=== PATIENT | female | born 1965 | race Caucasian/White ===

== ENCOUNTER 2021-09-14 12:27 | Inpatient (IN) ==
[2021-09-14 13:12] LABS: Basophils # (auto) 0.01 K/uL (0-0.2); Basophils % (auto) 0.1 %; Eosinophils # (auto) 0.01 K/uL (0-0.5); Eosinophils % (auto) 0.1 %; Hematocrit (blood only) 39.4 % (37-47); Hemoglobin 13.7 g/dL (12.0-16.0); Immature Granulocytes # (auto) 0.04 K/uL (0.00-0.02); Immature Granulocytes % (auto) 0.3 %; Lymphocytes # (auto) 1.38 K/uL (1.2-3.4); Lymphocytes % (auto) 8.7 %; Mean Corpuscular Hemoglobin 28.8 pg (25-34); Mean Corpuscular Hgb Conc 34.8 g/dL (32-36); Mean Corpuscular Volume 82.8 fL (80-100); Mean Platelet Volume 10.4 fL (7.4-10.4); Monocytes # (auto) 0.53 K/uL (0.11-0.59); Monocytes % (auto) 3.3 %; Neutrophils # (auto) 13.94 K/uL (1.4-6.5); Neutrophils % (auto) 87.5 %; Platelet Count 248 K/uL (130-400); RDW Standard Deviation 36.4 fL (36.4-46.3); Red Blood Count 4.76 M/uL (4.2-5.4); White Blood Count 15.91 K/uL (4.8-10.8)
[2021-09-14 13:30] LABS: Alanine Aminotransferase 19 (12-78); Albumin Level 3.8 gm/dl (3.4-5.0); Aspartate Aminotransferase 10 U/L (15-37); BUN Creatinine Ratio 25.1 (10-20); Blood Urea Nitrogen 17 mg/dl (7-18); Carbon Dioxide 27 mmol/L (21-32); Chloride 100 mmol/L (98-107); Creatinine Clr Calc Pharmacy 94.4 ml/min; Est GFR (African American) 116.3 ml/min; Est GFR (Non-African American) 100.4 ml/min; Glucose 87 mg/dl (70-99); Potassium 4.2 mmol/L (3.5-5.1); Sodium 134 mmol/L (136-145)
[2021-09-14 13:40] LABS: Albumin Globulin Ratio 1.1 (0.9-2); Alkaline Phosphatase 66 U/L (45-117); Bilirubin,Total 0.9 mg/dl (0.2-1); Globulin 3.6 gm/dl (2.5-4.0); Total Protein 7.4 gm/dl (6.4-8.2); Troponin I < 0.015 ng/ml (0-0.045)
--- NOTE | 2021-09-14 15:21 | Electrocardiogram Report ---
Test Reason : Blood Pressure : / mmHG Vent. Rate : 082 BPM Atrial Rate : 082 BPM P-R Int : 154 ms QRS Dur : 070 ms QT Int : 382 ms P-R-T Axes : 076 042 017 degrees QTc Int : 446 ms Normal sinus rhythm Septal infarct (cited on or before 10-SEP-2021) Abnormal ECG When compared with ECG of 10-SEP-2021 15:17, No significant change was found Confirmed by Diego Rodríguez ([id number]) on 09/14/2021 3:20:50 PM Referred By: Confirmed By:Diego Rodríguez
[2021-09-14] MEDS ORDERED: SODIUM CHLORIDE 0.9% 1000ML 2,000 ML IV ONE (16:17)
[2021-09-14] MEDS ORDERED: MoRPHine SULFATE 4 MG/ML 1 ML CARP\\VIAL IV STA (16:17)
[2021-09-14] MEDS ORDERED: ACETAMINOPHEN 1000 MG/100 ML IV IV STA (16:17)
[2021-09-14] MEDS ORDERED: ONDANSETRON INJ 2 MG/ML 2 ML VIAL IV STA (16:17)
[2021-09-14] MEDS ORDERED: cefTRIAXone SODIUM 2,000 MG/70 ML BAG IV STA (16:17)
--- NOTE | 2021-09-14 16:28 | Emergency Department Note ---
Impression & Plan Meningitis, Headache, Leukocytosis, Acute dehydration ED Provider Note NAME: PIPPA SONI AGE: 55 SEX: F : 1965 ARRIVES VIA: Walk-In INFORMANT: [Patient] ED PROVIDER(S): [José Miguel Quinn MD] � CHIEF COMPLAINT: Weakness, illness HISTORY OF PRESENT ILLNESS: The patient is a 55-year-old female who has been sick for about a week. She initially thought she was having a reaction from her Covid booster as her symptoms started the addiction therapist the day after she received a booster. She felt better a short bit later but then things kicked back in again. She c omplains of a headache, chills, body aches. She has some upper abdominal pain. She has had vomiting and nausea, no diarrhea, no urinary complaints. No sore throat or stuffy nose or cough. The patient did fall 4 days ago and strike her head. She was seen in the ED after this fall and a CT of the head was unremarkable. She presents back today at the advice of her doctor's office as her symptoms are ongoing and a bit worse. She describes her headache as diffuse and an 8/10. She has had shivers and chills while in the waiting room. She did try some Motrin and Tylenol earlier today. The patient is vaccinated for COVID-19 and influenza. REVIEW OF SYSTEMS: See HPI for pertinent positives and negatives. A total of ten systems were reviewed and were otherwise negative. PMHx/PSHx: See Below SOCIAL HISTORY: See Below. PHYSICAL EXAM: GENERAL: Patient is in no acute distress. Shivering. HEENT: No acute trauma, normocephalic atraumatic, mucous membranes moist, no nasal congestion, no scleral icterus. NECK: No stridor, no adenopathy, no meningismus, trachea is midline. LUNGS: Clear to auscultation bilaterally, no wheeze, no rhonchi, breath sounds equal. HEART: Without murmurs gallops or rubs, regular rate and rhythm. ABDOMEN: Soft, mildly tender in the epigastrium, bowel sounds positive, no hernias, no peritonitis. EXTREMITIES: No cyanosis or edema, full range of motion of all the joints without pain or difficulty, no signs for acute trauma. NEUROLOGIC: Oriented x 3, no acute motor or sensory deficits, no focal weakness. SKIN: No rash, no jaundice, no diaphoresis. DIFFERENTIAL DIAGNOSIS: Sepsis, UTI, pneumonia, metabolic abnormality, electrolyte abnormalities, COVID- 19, influenza, vaccine reaction, cardiac sources, cellulitis, bacteremia, meningitis, tickborne illness, intracerebral event, toxicologic etiology, neurologic event, as well as other pathologies. EMERGENCY DEPARTMENT COURSE/PROCEDURES: ECG: Indication was weakness and illness. The ECG shows a normal sinus rhythm with a rate of 82. There is an old septal infarct. There is no ST elevation, no PVCs. The QTc is 446. Continuous Cardiac Monitoring: An order was placed for continuous cardiac monitoring. The monitor shows a rate of 87 with normal sinus rhythm. Critical Care Note: I have personally spent 52 minutes of critical care time in the direct management of this patient. This includes bedside care, interpretation of diagnostic studies, and testing, discussion with consultants, patient, and family members, and other required patient management activities. This 52 minutes is in excess of all separately billable procedures. Lumbar puncture: This procedure was performed by me. Risks and benefits of the procedure were discussed. Patient was placed seated on the stretcher. Lumbar landmarks were identified. Betadine was used for prep. Sterile drapes were applied. Using sterile technique, lidocaine was used to anesthetize the lumbar area. Using sterile technique, I was able to access the spinal canal with a 22- gauge spinal needle. There were no complications. Fluid was collected for analysis and sent to the lab. Patient tolerated the procedure well. MEDICAL DECISION MAKING: There is a moderate leukocytosis, this is consistent with infection. There is a normal hemoglobin and platelet count. Sodium was a bit low but not in need of emergent correction. No kidney failure. Lactic acid level was not elevated making severe sepsis less likely. No concerning liver enzyme elevation. The patient appeared to be in a euthyroid state. ECG shows a sinus rhythm, no acute ischemia. Cardiac enzyme testing x1 is not consistent with acute cardiac injury. Urinalysis shows dehydration, no obvious infection. Covid testing returned negative. Influenza and RSV testing returned negative. Chest film did not show pneumonia or CHF. Brain CT showed no acute bleed or mass-effect. CSF fluid analysis does show evidence for meningitis. Bio fire testing of the spinal fluid was unremarkable. The patient presents with flulike symptoms and a headache. She was found to have meningitis by work-up. The patient received IV saline, 2 L. She was given 1 L of lactated Ringer's. She received IV Zofran, IV morphine, IV Decadron, IV ceftriaxone, IV Tylenol and IV acyclovir. The patient is in need of a hospital stay. I suspect this meningitis will engine turner to be viral but certainly, further work-up and care is warranted. The spinal fluid culture is still pending. I spoke with the patient and immigration case worker. The on-call hospitalist was consulted. Past Med/Surg History Medical History No active medical problems Family History Other Family history non-contributory Social History Smoking Status: Never smoker Feels Safe at Home: Yes Allergies Allergies Allergy/AdvReac Type Severity Reaction Status Date / Time No Known Allergies Allergy Verified 09/14/21 16:15 Home Meds Home Medications Medication Instructions Recorded Confirmed ibuprofen 200 mg tablet (Advil) 400 mg PO Q6H PRN 09/10/21 09/14/21 Previous Rx's Medication Instructions Recorded famotidine 20 mg tablet 20 mg PO BID #20 tab 09/10/21 ondansetron 4 mg disintegrating 4 mg PO Q6H PRN #14 tab 09/10/21 tablet Results & Data (ED) Vital Signs Vital Signs - 24 hr 09/14/21 12:40 09/14/21 18:08 09/14/21 18:30 Temperature 36.4 C L Temperature Source Temporal Artery Scan Pulse Rate 87 82 82 Pulse Rate [Apical] Pulse Rate from SpO2 Sensor 82 81 Pulse Rhythm Regular Pulse Rhythm [Apical] Pulse Strength Normal Pulse Strength [Apical] Respiratory Rate 20 23 23 Respiratory Effort / Characteristics Non-Labored Spontaneous Respiratory Depth Normal Respiratory Pattern Regular Blood Pressure 137/84 111/66 Blood Pressure [Right Arm] Blood Pressure Mean 101 81 Blood Pressure Mean [Right Arm] Blood Pressure Position Sitting Blood Pressure Position [Right Arm] Pulse Oximetry 96 92 94 Oxygen Delivery Method Room Air Oxygen Flow Rate Sepsis Recent Fever Within 48 Hours No Sepsis New/Unexplained Change in Mental Status N/A Sepsis Action Taken by Nursing No Action Required 09/14/21 20:21 Temperature Temperature Source Pulse Rate Pulse Rate [Apical] 78 Pulse Rate from SpO2 Sensor Pulse Rhythm Pulse Rhythm [Apical] Regular Pulse Strength Pulse Strength [Apical] Normal Respiratory Rate 20 Respiratory Effort / Characteristics Non-Labored Spontaneous Respiratory Depth Normal Respiratory Pattern Regular Blood Pressure Blood Pressure [Right Arm] 127/76 Blood Pressure Mean Blood Pressure Mean [Right Arm] 93 Blood Pressure Position Blood Pressure Position [Right Arm] Lying Pulse Oximetry 94 Oxygen Delivery Method Room Air Oxygen Flow Rate 0 Sepsis Recent Fever Within 48 Hours Sepsis New/Unexplained Change in Mental Status Sepsis Action Taken by Correction Medications Current Medication List: was personally reviewed by me Laboratory Data Attestation: I reviewed the patient's lab results. Result diagrams: 09/14/21 12:50 09/14/21 12:50 Lab Results 09/14/21 09/14/21 09/14/21 Range/Units 12:50 12:50 12:50 WBC 15.91 H (4.8-10.8) K/uL RBC 4.76 (4.2-5.4) M/uL Hgb 13.7 (12.0-16.0) g/dL Hct 39.4 (37-47) % MCV 82.8 (80-100) fL MCH 28.8 (25-34) pg MCHC 34.8 (32-36) g/dL RDW Std Deviation 36.4 (36.4-46.3) fL RDW Coeff of Nilo 12.0 (11.5-14.5) % Plt Count 248 (130-400) K/uL MPV 10.4 (7.4-10.4) fL Immature Gran % (Auto) 0.3 % Neut % (Auto) 87.5 % Lymph % (Auto) 8.7 % Converse % (Auto) 3.3 % Eos % (Auto) 0.1 % Baso % (Auto) 0.1 % Neut # (Auto) 13.94 H (1.4-6.5) K/uL Lymph # (Auto) 1.38 (1.2-3.4) K/uL Converse # (Auto) 0.53 (0.11-0.59) K/uL Eos # (Auto) 0.01 (0-0.5) K/uL Baso # (Auto) 0.01 (0-0.2) K/uL Immature Gran # (Auto) 0.04 H (0.00-0.02) K/uL Sodium 134 L (136-145) mmol/L Potassium 4.2 (3.5-5.1) mmol/L Chloride 100 (98-107) mmol/L Carbon Dioxide 27 (21-32) mmol/L Anion Gap 7.0 (3-11) BUN 17 (7-18) mg/dl Creatinine 0.67 (0.6-1.2) mg/dl Est Cr Clr Drug Dosing 94.4 ml/min Est GFR ( Amer) 116.3 ml/min Est GFR (Non-Af Amer) 100.4 ml/min BUN/Creatinine Ratio 25.1 H (10-20) Glucose 87 (70-99) mg/dl Lactate (0.4-2.0) mmol/L Calcium 9.0 (8.5-10.1) mg/dl Total Bilirubin 0.9 (0.2-1) mg/dl AST 10 L (15-37) U/L ALT 19 (12-78) Alkaline Phosphatase 66 (45-117) U/L Troponin I < 0.015 (0-0.045) ng/ml Total Protein 7.4 (6.4-8.2) gm/dl Albumin 3.8 (3.4-5.0) gm/dl Globulin 3.6 (2.5-4.0) gm/dl Albumin/Globulin Ratio 1.1 (0.9-2) TSH 1.750 (0.300-4.500) uIu/ml Urine Color Urine Appearance (Clear) Urine pH (4.5-7.5) Ur Specific [place] (1.000-1.030) Urine Protein (Negative) Urine Glucose (UA) (Negative) Urine Ketones (Negative) Urine Blood (Negative) Urine Nitrite (Negative) Urine Bilirubin (Negative) Urine Urobilinogen (Negative) Ur Leukocyte Esterase (Negative) Urine WBC (Auto) (0-5) /hpf Urine RBC (Auto) (0-4) /hpf U Hyaline Cast (Auto) (0-5) /lpf U Epithel Cells (Auto) (0-5) /lpf Urine Bacteria (Auto) (Negative) Fluid Comment CSF Appearance CSF Color Xanthrochromic CSF WBC (0-5) /uL CSF RBC (0-) /uL CSF Cell Count Tube # CSF Mononuclear WBCs % CSF Polynuclear WBCs % CSF Chemistry Tube # CSF Glucose (40-70) mg/dl CSF Total Protein (15-45) mg/dl CSF C.neoform/gat PCR (NotDetected) CSF CMV DNA (PCR) (NotDetected) CSF Enterovirus (PCR) (NotDetected) CSF E. coli K1 (PCR) (NotDetected) CSF H. influenzae (PCR) (NotDetected) CSF HSV I (PCR) (NotDetected) CSF HSV II (PCR) (NotDetected) CSF HHV 6 (PCR) (NotDetected) CSF L.monocytogenes PCR (NotDetected) CSF N. meningitidis PCR (NotDetected) CSF Parechovirus (PCR) (NotDetected) CSF S. agalactiae (PCR) (NotDetected) CSF S. pneumoniae (PCR) (NotDetected) CSF VZV DNA (PCR) (NotDetected) Anaplasma Smear Babesia Smear Lyme Disease IgG Ab Negative (Negative) Lyme Disease IgM Ab Negative (Negative) SARS-CoV-2 (PCR) (Negative) Influenza Type A (PCR) (Neg) Influenza Type B (PCR) (Neg) RSV (RT-PCR) (Neg) 09/14/21 09/14/21 09/14/21 Range/Units 12:50 17:00 17:15 WBC (4.8-10.8) K/uL RBC (4.2-5.4) M/uL Hgb (12.0-16.0) g/dL Hct (37-47) % MCV (80-100) fL MCH (25-34) pg MCHC (32-36) g/dL RDW Std Deviation (36.4-46.3) fL RDW Coeff of Nilo (11.5-14.5) % Plt Count (130-400) K/uL MPV (7.4-10.4) fL Immature Gran % (Auto) % Neut % (Auto) % Lymph % (Auto) % Converse % (Auto) % Eos % (Auto) % Baso % (Auto) % Neut # (Auto) (1.4-6.5) K/uL Lymph # (Auto) (1.2-3.4) K/uL [place] # (Auto) (0.11-0.59) K/uL Eos # (Auto) (0-0.5) K/uL Baso # (Auto) (0-0.2) K/uL Immature Gran # (Auto) (0.00-0.02) K/uL Sodium (136-145) mmol/L Potassium (3.5-5.1) mmol/L Chloride (98-107) mmol/L Carbon Dioxide (21-32) mmol/L Anion Gap (3-11) BUN (7-18) mg/dl Creatinine (0.6-1.2) mg/dl Est Cr Clr Drug Dosing ml/min Est GFR ( Amer) ml/min Est GFR (Non-Af Amer) ml/min BUN/Creatinine Ratio (10-20) Glucose (70-99) mg/dl Lactate 1.0 (0.4-2.0) mmol/L Calcium (8.5-10.1) mg/dl Total Bilirubin (0.2-1) mg/dl AST (15-37) U/L ALT (12-78) Alkaline Phosphatase (45-117) U/L Troponin I (0-0.045) ng/ml Total Protein (6.4-8.2) gm/dl Albumin (3.4-5.0) gm/dl Globulin (2.5-4.0) gm/dl Albumin/Globulin Ratio (0.9-2) TSH (0.300-4.500) uIu/ml Urine Color Urine Appearance (Clear) Urine pH (4.5-7.5) Ur Specific [place] (1.000-1.030) Urine Protein (Negative) Urine Glucose (UA) (Negative) Urine Ketones (Negative) Urine Blood (Negative) Urine Nitrite (Negative) Urine Bilirubin (Negative) Urine Urobilinogen (Negative) Ur Leukocyte Esterase (Negative) Urine WBC (Auto) (0-5) /hpf Urine RBC (Auto) (0-4) /hpf U Hyaline Cast (Auto) (0-5) /lpf U Epithel Cells (Auto) (0-5) /lpf Urine Bacteria (Auto) (Negative) Fluid Comment CSF Appearance CSF Color Xanthrochromic CSF WBC (0-5) /uL CSF RBC (0-) /uL CSF Cell Count Tube # CSF Mononuclear WBCs % CSF Polynuclear WBCs % CSF Chemistry Tube # CSF Glucose (40-70) mg/dl CSF Total Protein (15-45) mg/dl CSF C.neoform/gat PCR (NotDetected) CSF CMV DNA (PCR) (NotDetected) CSF Enterovirus (PCR) (NotDetected) CSF E. coli K1 (PCR) (NotDetected) CSF H. influenzae (PCR) (NotDetected) CSF HSV I (PCR) (NotDetected) CSF HSV II (PCR) (NotDetected) CSF HHV 6 (PCR) (NotDetected) CSF L.monocytogenes PCR (NotDetected) CSF N. meningitidis PCR (NotDetected) CSF Parechovirus (PCR) (NotDetected) CSF S. agalactiae (PCR) (NotDetected) CSF S. pneumoniae (PCR) (NotDetected) CSF VZV DNA (PCR) (NotDetected) Anaplasma Smear See Comment Babesia Smear See Comment Lyme Disease IgG Ab (Negative) Lyme Disease IgM Ab (Negative) SARS-CoV-2 (PCR) NEGATIVE (Negative) Influenza Type A (PCR) Negative (Neg) Influenza Type B (PCR) Negative (Neg) RSV (RT-PCR) Negative (Neg) 09/14/21 09/14/21 09/14/21 Range/Units 18:53 20:00 20:00 WBC (4.8-10.8) K/uL RBC (4.2-5.4) M/uL Hgb (12.0-16.0) g/dL Hct (37-47) % MCV (80-100) fL MCH (25-34) pg MCHC (32-36) g/dL RDW Std Deviation (36.4-46.3) fL RDW Coeff of Nilo (11.5-14.5) % Plt Count (130-400) K/uL MPV (7.4-10.4) fL Immature Gran % (Auto) % Neut % (Auto) % Lymph % (Auto) % [place] % (Auto) % Eos % (Auto) % Baso % (Auto) % Neut # (Auto) (1.4-6.5) K/uL Lymph # (Auto) (1.2-3.4) K/uL [place] # (Auto) (0.11-0.59) K/uL Eos # (Auto) (0-0.5) K/uL Baso # (Auto) (0-0.2) K/uL Immature Gran # (Auto) (0.00-0.02) K/uL Sodium (136-145) mmol/L Potassium (3.5-5.1) mmol/L Chloride (98-107) mmol/L Carbon Dioxide (21-32) mmol/L Anion Gap (3-11) BUN (7-18) mg/dl Creatinine (0.6-1.2) mg/dl Est Cr Clr Drug Dosing ml/min Est GFR ( Amer) ml/min Est GFR (Non-Af Amer) ml/min BUN/Creatinine Ratio (10-20) Glucose (70-99) mg/dl Lactate (0.4-2.0) mmol/L Calcium (8.5-10.1) mg/dl Total Bilirubin (0.2-1) mg/dl AST (15-37) U/L ALT (12-78) Alkaline Phosphatase (45-117) U/L Troponin I (0-0.045) ng/ml Total Protein (6.4-8.2) gm/dl Albumin (3.4-5.0) gm/dl Globulin (2.5-4.0) gm/dl Albumin/Globulin Ratio (0.9-2) TSH (0.300-4.500) uIu/ml Urine Color Dark Yellow Urine Appearance Clear (Clear) Urine pH 5.5 (4.5-7.5) Ur Specific [place] 1.034 H (1.000-1.030) Urine Protein Trace H (Negative) Urine Glucose (UA) Negative (Negative) Urine Ketones 4+ H (Negative) Urine Blood Trace H (Negative) Urine Nitrite Negative (Negative) Urine Bilirubin Negative (Negative) Urine Urobilinogen Negative (Negative) Ur Leukocyte Esterase Trace H (Negative) Urine WBC (Auto) 10-30 H (0-5) /hpf Urine RBC (Auto) 0-4 (0-4) /hpf U Hyaline Cast (Auto) 1-5 (0-5) /lpf U Epithel Cells (Auto) >30 H (0-5) /lpf Urine Bacteria (Auto) Negative (Negative) Fluid Comment CSF Appearance Clear CSF Color Yellow Xanthrochromic Xanthochromic CSF WBC 88 H* (0-5) /uL CSF RBC 0 (0-) /uL CSF Cell Count Tube # 3 CSF Mononuclear WBCs 68.0 % CSF Polynuclear WBCs 32.0 % CSF Chemistry Tube # 1 CSF Glucose 54 (40-70) mg/dl CSF Total Protein 138.1 H (15-45) mg/dl CSF C.neoform/gat PCR Not Detected (NotDetected) CSF CMV DNA (PCR) Not Detected (NotDetected) CSF Enterovirus (PCR) Not Detected (NotDetected) CSF E. coli K1 (PCR) Not Detected (NotDetected) CSF H. influenzae (PCR) Not Detected (NotDetected) CSF HSV I (PCR) Not Detected (NotDetected) CSF HSV II (PCR) Not Detected (NotDetected) CSF HHV 6 (PCR) Not Detected (NotDetected) CSF L.monocytogenes PCR Not Detected (NotDetected) CSF N. meningitidis PCR Not Detected (NotDetected) CSF Parechovirus (PCR) Not Detected (NotDetected) CSF S. agalactiae (PCR) Not Detected (NotDetected) CSF S. pneumoniae (PCR) Not Detected (NotDetected) CSF VZV DNA (PCR) Not Detected (NotDetected) Anaplasma Smear Babesia Smear Lyme Disease IgG Ab (Negative) Lyme Disease IgM Ab (Negative) SARS-CoV-2 (PCR) (Negative) Influenza Type A (PCR) (Neg) Influenza Type B (PCR) (Neg) RSV (RT-PCR) (Neg) Administered Medications Discontinued Medications Acetaminophen (Acetaminophen 1000 Mg/100 Ml Iv) 1,000 mg IV NOW STA Stop: 09/14/21 16:18 Last Admin: 09/14/21 17:06 Dose: 1,000 mg Documented by: [id number] Dexamethasone Sodium Phosphate (DexamethasonePf 10 Mg/Ml Vial) 10 mg IV NOW ONE Stop: 09/14/21 21:03 Last Admin: 09/14/21 21:45 Dose: 10 mg Documented by: [id number] Sodium Chloride (Nss 1000ml) 2,000 mls @ 999 mls/hr IV .Q2H1M ONE Stop: 09/14/21 18:17 Last Infusion: 09/14/21 19:00 Dose: 0 mls/hr Documented by: [id number] Admin: 09/14/21 17:03 Dose: 999 mls/hr Documented by: [id number] Ceftriaxone Sodium (Rocephin) 2,000 mg in 70 mls @ 140 mls/hr IV NOW STA Stop: 09/14/21 16:46 Last Infusion: 09/14/21 19:00 Dose: 0 mls/hr Documented by: [id number] Admin: 09/14/21 17:03 Dose: 140 mls/hr Documented by: [id number] Lactated Ringer's (Lr) 1,000 mls @ 999 mls/hr IV .Q1H1M STA Stop: 09/14/21 21:17 Last Infusion: 09/14/21 21:43 Dose: 0 mls/hr Documented by: [id number] Admin: 09/14/21 20:25 Dose: 999 mls/hr Documented by: [id number] Acyclovir Sodium 700 mg/ (Dextrose) 264 mls @ 250 mls/hr IV NOW ONE Stop: 09/14/21 23:00 Last Admin: 09/14/21 22:21 Dose: 250 mls/hr Documented by: [id number] Lidocaine HCl (Xylocaine 1%/Sod Bicarb 20 Ml Vial) 20 ml INFIL NOW ONE Stop: 09/14/21 19:31 Last Admin: 09/14/21 20:01 Dose: 20 ml Documented by: [id number] Morphine Sulfate (Morphine Sulfate 4 Mg/Ml 1 Ml Carp\Vial) 4 mg IV NOW STA Stop: 09/14/21 16:18 Last Admin: 09/14/21 16:42 Dose: 4 mg Documented by: [id number] Ondansetron HCl (Ondansetron Inj 2 Mg/Ml 2 Ml Vial) 4 mg IV NOW STA Stop: 09/14/21 16:18 Last Admin: 09/14/21 16:42 Dose: 4 mg Documented by: [id number] Imaging Data Radiologist's Impression: Chest X-Ray 09/14/21 16:19 XR chest 1V portable CLINICAL HISTORY: Flulike symptoms. Difficulty breathing. Previous cough, fever and shortness of breath COMPARISON STUDY: 09/10/2021 TECHNIQUE: 1 view of the chest FINDINGS: Single frontal view of the chest demonstrates the cardiomediastinal silhouette to be within normal limits. The lungs are clear of alveolar opacities. There is no evidence for pleural effusion. There is no evidence for vascular congestion. There is no acute osseous pathology. IMPRESSION: No acute cardiopulmonary disease. ACT 112: Negative or not required by law. Electronically signed by: Steven Escamilla M.D. 09/14/2021 4:[address] 09/14/21 16:19 CT head/brain wo con CLINICAL HISTORY: 55 years-old Female with fall, headache. Acute headache status post fall TECHNIQUE: Multiple axial CT images of the head were obtained without contrast. A dose lowering technique was utilized adhering to the principles of ALARA. CT DOSE: 537.48 mGy.cm COMPARISON: Head CT 09/10/2021 FINDINGS: No acute intracranial hemorrhage, midline shift, intracranial mass, hydr ocephalus, territorial ischemia or abnormal extra-axial collection. Senescent calcifications of the basal ganglia. Minimal white matter hypodensities may reflect chronic microvascular ischemic disease. The study is mildly motion degraded. The calvarium is intact. Small contusion of the left posterior scalp. The paranasal sinuses, mastoid air cells, and middle ear cavities are clear. IMPRESSION: 1. No acute intracranial abnormality or calvarial fracture. 2. Small contusion of the left posterior scalp. ACT 112: Negative or not required by law. The above report was generated using voice recognition software. It may contain grammatical, syntax or spelling errors. Electronically signed by: Herbert Tesfaye M.D. 09/14/2021 6:04 PM Discharge Plan Visit Data Chief Complaint: Weakness Stated Complaint: WEAK,TIRED,NOT EATING,POSS CONCUSSION,JASSO ED Provider: José Miguel Quinn Discharge Problem: Meningitis, Headache, Leukocytosis, Acute dehydration Patient Disposition: Admitted As Inpatient Condition: Fair
--- NOTE | 2021-09-14 16:39 | XRay Report ---
XR chest 1V portable CLINICAL HISTORY: Flulike symptoms. Difficulty breathing. Previous cough, fever and shortness of br eath COMPARISON STUDY: 09/10/2021 TECHNIQUE: 1 view of the chest FINDINGS: Single frontal view of the chest demonstrates the cardiomediastinal silhouette to be within normal li mits. The lungs are clear of alveolar opacities. There is no evidence for pleural effusion. There is no evidence for vascular congestion. There is no acute osseous pathology. IMPRESSION: No acute cardiopulmonary disease. ACT 112: Negative or not required by law. Electronically signed by: Steven Escamilla M.D. 09/14/2021 4:38 PM
[2021-09-14 17:29] LABS: Lyme Ab IgG w/WB Rflx Negative (Negative); Lyme Ab IgM w/WB Rflx Negative (Negative)
--- NOTE | 2021-09-14 18:06 | CT Scan Report ---
CT head/brain wo con CLINICAL HISTORY: 55 years-old Female with fall, headache. Acute headache status post fall TECHNIQUE: Multiple axial CT images of the head were obtained without contrast. A dose lowering tech nique was utilized adhering to the principles of ALARA. CT DOSE: 537.48 mGy.cm COMPARISON: Head CT 09/10/2021 FINDINGS: No acute intracranial hemorrhage, midline shift, intracranial mass, hydrocephalus, territorial ischem ia or abnormal extra-axial collection. Senescent calcifications of the basal ganglia. Minimal white m atter hypodensities may reflect chronic microvascular ischemic disease. The study is mildly motion de graded. The calvarium is intact. Small contusion of the left posterior scalp. The paranasal sinuses, mastoid air cells, and middle ear cavities are clear. IMPRESSION: 1. No acute intracranial abnormality or calvarial fracture. 2. Small contusion of the left posterior scalp. ACT 112: Negative or not required by law. The above report was generated using voice recognition software. It may contain grammatical, syntax o r spelling errors. Electronically signed by: Herbert Tesfaye M.D. 09/14/2021 6:04 PM
[2021-09-14 18:13] LABS: Influenza A virus by PCR Negative (Neg); Influenza B virus by PCR Negative (Neg); RSV by PCR Negative (Neg); SARS CoV2 RNA(COVID-19) InHosp NEGATIVE (Negative)
[2021-09-14 19:12] LABS: Appearance Urine Clear (Clear); Bacteria Urine Automated Negative (Negative); Bilirubin Urine Negative (Negative); Blood Urine Trace (Negative); Color Urine Dark Yellow; Epithelial Cell Urine Auto >30 /lpf (0-5); Glucose Urine UA Negative (Negative); Ketones Urine 4+ (Negative); Leukocyte Esterase Urine Trace (Negative); Nitrite Urine Negative (Negative); Protein Urine Trace (Negative); RBC Urine Automated 0-4 /hpf (0-4); Specific Gravity Urine 1.034 (1.000-1.030); Urobilinogen Urine Negative (Negative); pH Urine 5.5 (4.5-7.5)
[2021-09-14] MEDS ORDERED: XYLOCAINE 1%/SOD BICARB 20 ML VIAL INFIL ONE (19:30)
[2021-09-14] MEDS ORDERED: LACTATED RINGER'S 1,000 ML IV STA (20:17)
[2021-09-14 20:37] LABS: CSF Glucose 54 mg/dl (40-70); Total Protein CSF 138.1 mg/dl (15-45)
[2021-09-14 20:54] LABS: Appearance CSF Clear; CSF Count Tube # 3
[2021-09-14 20:55] LABS: CSF Xanthrochromic Xanthochromic; Color CSF Yellow; Red Blood Cell CSF (A) 0 /uL (0-); Red Blood Cell CSF (B) 0 /uL (0-)
[2021-09-14 20:57] LABS: White Blood Cell CSF (A) 88 /uL (0-5); White Blood Cell CSF (B) 82 /uL (0-5)
[2021-09-14] MEDS ORDERED: dexAMETHasone**PF** 10 MG/ML VIAL IV ONE (21:02)
[2021-09-14 21:35] LABS: CSF Chemistry Tube # 1
[2021-09-14 21:54] LABS: Cryptococcus neoformans/ga PCR Not Detected (NotDetected); Cytomegalovirus PCR Not Detected (NotDetected); Enterovirus PCR Not Detected (NotDetected); Escherichia coli K1 PCR Not Detected (NotDetected); Haemophilius influenzae PCR Not Detected (NotDetected); Herpes Simplex Virus 1 PCR Not Detected (NotDetected); Herpes Simplex Virus 2 PCR Not Detected (NotDetected); Human Herpes Virus 6 PCR Not Detected (NotDetected); Human Parechovirus PCR Not Detected (NotDetected); Listeria monocytogenes PCR Not Detected (NotDetected); Neisseria meningitidis PCR Not Detected (NotDetected); Streptococcus agalactiae PCR Not Detected (NotDetected); Streptococcus pneumoniae PCR Not Detected (NotDetected); Varicella Zoster Virus PCR Not Detected (NotDetected)
[2021-09-14] MEDS ORDERED: ACYCLOVIR SOD 700 MG in DEXTROSE 5% 250 ML IV ONE (21:57)
--- NOTE | 2021-09-14 22:21 | History & Physical Report ---
Date of Service September 14, 2021 Assessment & Plan (1) Meningitis: Plan: 55 yo F admitted for treatment of meningitis. Meningitis, unknown source - LP: 88 WBC, 138 Total protein, 54 glucose. - CSF viral panel negative - CSF gram stain negative, culture pending - CT Head wo intracranial abnormality, small L posterior scalp contusion - WBC 15k, new increase from 09/11. Afebrile, no tachycardia - no mental status changes, Q4H [facility] neuro checks. - blood cultures pending - received ceftriaxone, decadron, acyclovir in ER. - Continue ceftriaxone 2g Q12, Decadron 10mg Q6 x4days. - elevated HOB 30degrees for reduction of ICP DVT ppx: low risk FEN/GI: regular, NS maintenance Code Status: full code Dispo: PCU (2) Hypertension: History of Present Illness Primary Care Provider: Merced Oviedo, 55 yo otherwise healthy female in ER for syncope, illness, admitted for concerns of meningitis. States that she got her COVID19 booster on 09/06, and had some mild pain with breathing the following day. By friday, was starting to feel better and thinking of going to work on Friday. Friday morning was profoundly fatigued, feeling worse, syncopized at home and didn't realize until she woke up on the floor in the kitchen and didn't remember getting there. Says her witnessed her 'slump over' on the couch, which prompted them to seek care at ER on 09/10. Seen by PCP's office ([facility]) on 09/11, outpatient CBC and tickborne illness panel negative, sent zofran for nausea and advised to increase PO fluid intake. Returned to ER today for continued symptoms and worsening headache/light sensitivity. She does have a remote hx of meningitis 17 years ago when her daughter was 1 year old. Allergies Allergy/AdvReac Type Severity Reaction Status Date / Time No Known Allergies Allergy Verified 09/14/21 16:15 Home Medications Medication Instructions Recorded Confirmed Type famotidine 20 mg tablet 20 mg PO BID #20 tab 09/10/21 09/14/21 Rx ibuprofen 200 mg tablet (Advil) 400 mg PO Q6H PRN 09/10/21 09/14/21 History ondansetron 4 mg disintegrating 4 mg PO Q6H PRN #14 tab 09/10/21 09/14/21 Rx tablet Past Med/Surg History Medical History No active medical problems Family History Other Family history non-contributory Social History Smoking Status: Never smoker Second Hand Exposure: No; Do You Dip or Chew Tobacco: No; Tobacco Cessation Education Requested by Patient: No Hx Alcohol Use: No Hx Substance Use: No Preferred Language: [place] Communication Ability: Effective Laboratory Specialist Required: No Beliefs That Will Affect Care: None Current Living Situation: Spouse Other Information That Helps Us Care for You: No Feels Safe at Home: Yes Safety Concerns: Feels Safe At This Time Review of Systems Constitutional: + chills, + body aches, + fatigue, + weakness and + anorexia Respiratory: no cough, no dyspnea and no pain on inspiration Cardiovascular: + chest pain, + lightheadedness and + syncope; no chest pain with activity, no dyspnea at rest and no edema Gastrointestinal: + nausea and + vomiting; no abdominal pain Neurologic: + dizziness, + syncope and + headache(s) +light sensitivity Physical Exam Physical Exam: const: uncomfortable appearing, wrapped up in blankets in dark room card: rrr, no mrg, pulm: CTA, no work of breathing abd: soft, nontender ext: no edema, 2+ pulses neuro: A&Ox3, moving all limbs equally, no sensory or motor loss Results & Data Results & Data ([facility]) Vital Signs (Past 12 Hours) Vital Signs Temp Pulse Pulse Resp BP BP Pulse Ox 09/14/21 20:21 78 20 127/76 94 09/14/21 18:30 82 23 111/66 94 09/14/21 18:08 82 23 92 09/14/21 12:40 36.4 C L 87 20 137/84 96 Laboratory Results Laboratory Results WBC 15.91 K/uL (4.8-10.8) H 09/14/21 12:50 RBC 4.76 M/uL (4.2-5.4) 09/14/21 12:50 Hgb 13.7 g/dL (12.0-16.0) 09/14/21 12:50 Hct 39.4 % (37-47) 09/14/21 12:50 MCV 82.8 fL (80-100) 09/14/21 12:50 MCH 28.8 pg (25-34) 09/14/21 12:50 MCHC 34.8 g/dL (32-36) 09/14/21 12:50 RDW Std Deviation 36.4 fL (36.4-46.3) 09/14/21 12:50 RDW Coeff of Nilo 12.0 % (11.5-14.5) 09/14/21 12:50 Plt Count 248 K/uL (130-400) 09/14/21 12:50 MPV 10.4 fL (7.4-10.4) 09/14/21 12:50 Immature Gran % (Auto) 0.3 % 09/14/21 12:50 Neut % (Auto) 87.5 % 09/14/21 12:50 Lymph % (Auto) 8.7 % 09/14/21 12:50 [place] % (Auto) 3.3 % 09/14/21 12:50 Eos % (Auto) 0.1 % 09/14/21 12:50 Baso % (Auto) 0.1 % 09/14/21 12:50 Neut # (Auto) 13.94 K/uL (1.4-6.5) H 09/14/21 12:50 Lymph # (Auto) 1.38 K/uL (1.2-3.4) 09/14/21 12:50 Walton # (Auto) 0.53 K/uL (0.11-0.59) 09/14/21 12:50 Eos # (Auto) 0.01 K/uL (0-0.5) 09/14/21 12:50 Baso # (Auto) 0.01 K/uL (0-0.2) 09/14/21 12:50 Immature Gran # (Auto) 0.04 K/uL (0.00-0.02) H 09/14/21 12:50 Sodium 134 mmol/L (136-145) L 09/14/21 12:50 Potassium 4.2 mmol/L (3.5-5.1) 09/14/21 12:50 Chloride 100 mmol/L (98-107) 09/14/21 12:50 Carbon Dioxide 27 mmol/L (21-32) 09/14/21 12:50 Anion Gap 7.0 (3-11) 09/14/21 12:50 BUN 17 mg/dl (7-18) 09/14/21 12:50 Creatinine 0.67 mg/dl (0.6-1.2) 09/14/21 12:50 Est Cr Clr Drug Dosing 94.4 ml/min 09/14/21 12:50 Est GFR ( Amer) 116.3 ml/min 09/14/21 12:50 Est GFR (Non-Af Amer) 100.4 ml/min 09/14/21 12:50 BUN/Creatinine Ratio 25.1 (10-20) H 09/14/21 12:50 Glucose 87 mg/dl (70-99) 09/14/21 12:50 Lactate 1.0 mmol/L (0.4-2.0) 09/14/21 17:00 Calcium 9.0 mg/dl (8.5-10.1) 09/14/21 12:50 Total Bilirubin 0.9 mg/dl (0.2-1) 09/14/21 12:50 AST 10 U/L (15-37) L 09/14/21 12:50 ALT 19 (12-78) 09/14/21 12:50 Alkaline Phosphatase 66 U/L (45-117) 09/14/21 12:50 Troponin I < 0.015 ng/ml (0-0.045) 09/14/21 12:50 Total Protein 7.4 gm/dl (6.4-8.2) 09/14/21 12:50 Albumin 3.8 gm/dl (3.4-5.0) 09/14/21 12:50 Globulin 3.6 gm/dl (2.5-4.0) 09/14/21 12:50 Albumin/Globulin Ratio 1.1 (0.9-2) 09/14/21 12:50 TSH 1.750 uIu/ml (0.300-4.500) 09/14/21 12:50 Urine Color Dark Yellow 09/14/21 18:53 Urine Appearance Clear (Clear) 09/14/21 18:53 Urine pH 5.5 (4.5-7.5) 09/14/21 18:53 Ur Specific [place] 1.034 (1.000-1.030) H 09/14/21 18:53 Urine Protein Trace (Negative) H 09/14/21 18:53 Urine Glucose (UA) Negative (Negative) 09/14/21 18:53 Urine Ketones 4+ (Negative) H 09/14/21 18:53 Urine Blood Trace (Negative) H 09/14/21 18:53 Urine Nitrite Negative (Negative) 09/14/21 18:53 Urine Bilirubin Negative (Negative) 09/14/21 18:53 Urine Urobilinogen Negative (Negative) 09/14/21 18:53 Ur Leukocyte Esterase Trace (Negative) H 09/14/21 18:53 Urine WBC (Auto) 10-30 /hpf (0-5) H 09/14/21 18:53 Urine RBC (Auto) 0-4 /hpf (0-4) 09/14/21 18:53 U Hyaline Cast (Auto) 1-5 /lpf (0-5) 09/14/21 18:53 U Epithel Cells (Auto) >30 /lpf (0-5) H 09/14/21 18:53 Urine Bacteria (Auto) Negative (Negative) 09/14/21 18:53 Fluid Comment 09/14/21 20:00 CSF Appearance Clear 09/14/21 20:00 CSF Color Yellow 09/14/21 20:00 Xanthrochromic Xanthochromic 09/14/21 20:00 CSF WBC 88 /uL (0-5) H* 09/14/21 20:00 CSF RBC 0 /uL (0-) 09/14/21 20:00 CSF Cell Count Tube # 3 09/14/21 20:00 CSF Mononuclear WBCs 68.0 % 09/14/21 20:00 CSF Polynuclear WBCs 32.0 % 09/14/21 20:00 CSF Chemistry Tube # 1 09/14/21 20:00 CSF Glucose 54 mg/dl (40-70) 09/14/21 20:00 CSF Total Protein 138.1 mg/dl (15-45) H 09/14/21 20:00 CSF C.neoform/gat PCR Not Detected (NotDetected) 09/14/21 20:00 CSF CMV DNA (PCR) Not Detected (NotDetected) 09/14/21 20:00 CSF Enterovirus (PCR) Not Detected (NotDetected) 09/14/21 20:00 CSF E. coli K1 (PCR) Not Detected (NotDetected) 09/14/21 20:00 CSF H. influenzae (PCR) Not Detected (NotDetected) 09/14/21 20:00 CSF HSV I (PCR) Not Detected (NotDetected) 09/14/21 20:00 CSF HSV II (PCR) Not Detected (NotDetected) 09/14/21 20:00 CSF HHV 6 (PCR) Not Detected (NotDetected) 09/14/21 20:00 CSF L.monocytogenes PCR Not Detected (NotDetected) 09/14/21 20:00 CSF N. meningitidis PCR Not Detected (NotDetected) 09/14/21 20:00 CSF Parechovirus (PCR) Not Detected (NotDetected) 09/14/21 20:00 CSF S. agalactiae (PCR) Not Detected (NotDetected) 09/14/21 20:00 CSF S. pneumoniae (PCR) Not Detected (NotDetected) 09/14/21 20:00 CSF VZV DNA (PCR) Not Detected (NotDetected) 09/14/21 20:00 Anaplasma Smear See Comment 09/14/21 12:50 Babesia Smear See Comment 09/14/21 12:50 Lyme Disease IgG Ab Negative (Negative) 09/14/21 12:50 Lyme Disease IgM Ab Negative (Negative) 09/14/21 12:50 SARS-CoV-2 (PCR) NEGATIVE (Negative) 09/14/21 17:15 Influenza Type A (PCR) Negative (Neg) 09/14/21 17:15 Influenza Type B (PCR) Negative (Neg) 09/14/21 17:15 RSV (RT-PCR) Negative (Neg) 09/14/21 17:15 Impressions Chest X-Ray 09/14/21 16:19 XR chest 1V portable CLINICAL HISTORY: Flulike symptoms. Difficulty breathing. Previous cough, fever and shortness of breath COMPARISON STUDY: 09/10/2021 TECHNIQUE: 1 view of the chest FINDINGS: Single frontal view of the chest demonstrates the cardiomediastinal silhouette to be within normal limits. The lungs are clear of alveolar opacities. There is no evidence for pleural effusion. There is no evidence for vascular congestion. There is no acute osseous pathology. IMPRESSION: No acute cardiopulmonary disease. ACT 112: Negative or not required by law. Electronically signed by: Steven Escamilla M.D. 09/14/2021 4:[address] 09/14/21 16:19 CT head/brain wo con CLINICAL HISTORY: 55 years-old Female with fall, headache. Acute headache status post fall TECHNIQUE: Multiple axial CT images of the head were obtained without contrast. A dose lowering technique was utilized adhering to the principles of ALARA. CT DOSE: 537.48 mGy.cm COMPARISON: Head CT 09/10/2021 FINDINGS: No acute intracranial hemorrhage, midline shift, intracranial mass, hydrocephalus, territorial ischemia or abnormal extra-axial collection. Senescent calcifications of the basal ganglia. Minimal white matter hypodensities may reflect chronic microvascular ischemic disease. The study is mildly motion degraded. The calvarium is intact. Small contusion of the left posterior scalp. The paranasal sinuses, mastoid air cells, and middle ear cavities are clear. IMPRESSION: 1. No acute intracranial abnormality or calvarial fracture. 2. Small contusion of the left posterior scalp. ACT 112: Negative or not required by law. The above report was generated using voice recognition software. It may contain grammatical, syntax or spelling errors. Electronically signed by: Herbert Tesfaye M.D. 09/14/2021 6:04 PM Supervising Physician Co-Signing Physician Notes Attending addendum: I have physically seen this patient, have supervised the medical residents activities, and agree with the H&P unless as otherwise noted. Assessment and Plan: Meningitis- CSF viral panel negative CSF Gram stain and culture pending CT head negative Follow all cultures Empiric Decadron IV, ceftriaxone IV, vancomycin IV and acyclovir IV Consult neurology Remaining orders and notations as noted Resident Activity Tracking Resident Involvement: Resident Care Provided Care Provided: Adult Hospital Medicine
[2021-09-15] MEDS: SODIUM CHLORIDE 0.9% 1000ML 1,000 ML IV SCH ×3 (01:07→16:01)
[2021-09-15] MEDS: ACETAMINOPHEN 325 MG TAB PO PRN ×2 (03:44→09:03)
[2021-09-15] MEDS: dexAMETHasone 10 MG in SYRINGE 0 ML IV SCH ×4 (03:45→23:15)
[2021-09-15] MEDS: cefTRIAXone SODIUM 2,000 MG in DEXTROSE 5% 50 ML IV SCH ×2 (04:53→18:02)
[2021-09-15 06:44] LABS: Hematocrit (blood only) 34.7 % (37-47); Hemoglobin 11.9 g/dL (12.0-16.0); Immature Granulocytes # (auto) 0.02 K/uL (0.00-0.02); Immature Granulocytes % (auto) 0.2 %; Lymphocytes # (auto) 0.56 K/uL (1.2-3.4); Lymphocytes % (auto) 5.6 %; Mean Corpuscular Hemoglobin 28.5 pg (25-34); Mean Corpuscular Hgb Conc 34.3 g/dL (32-36); Mean Corpuscular Volume 83.2 fL (80-100); Mean Platelet Volume 10.9 fL (7.4-10.4); Monocytes # (auto) 0.04 K/uL (0.11-0.59); Monocytes % (auto) 0.4 %; Neutrophils # (auto) 9.33 K/uL (1.4-6.5); Neutrophils % (auto) 93.8 %; Platelet Count 226 K/uL (130-400); RDW Standard Deviation 36.5 fL (36.4-46.3); Red Blood Count 4.17 M/uL (4.2-5.4); White Blood Count 9.95 K/uL (4.8-10.8)
[2021-09-15 07:01] LABS: Albumin Level 2.9 gm/dl (3.4-5.0); BUN Creatinine Ratio 18.7 (10-20); Calcium 7.7 mg/dl (8.5-10.1); Creatinine Clr Calc Pharmacy 109.1 ml/min; Est GFR (Non-African American) 105.2 ml/min; Potassium 4.1 mmol/L (3.5-5.1)
[2021-09-15 07:11] LABS: Albumin Globulin Ratio 0.9 (0.9-2); Bilirubin,Total 0.4 mg/dl (0.2-1); Globulin 3.3 gm/dl (2.5-4.0); Total Protein 6.2 gm/dl (6.4-8.2)
--- NOTE | 2021-09-15 10:21 | Electrocardiogram Report ---
Test Reason : Blood Pressure : / mmHG Vent. Rate : 082 BPM Atrial Rate : 082 BPM P-R Int : 152 ms QRS Dur : 066 ms QT Int : 370 ms P-R-T Axes : 073 055 014 degrees QTc Int : 432 ms Normal sinus rhythm Septal infarct (cited on or before 10-SEP-2021) Nonspecific ST abnormality Abnormal ECG When compared with ECG of 14-SEP-2021 12:51, No significant change was found Confirmed by Anton Bal ([id number]) on 09/15/2021 10:20:45 AM Referred By: Merced Oviedo Confirmed By:Anton Bal
[2021-09-15] MEDS ORDERED: VANCOMYCIN CONSULT ACTIVE PRN (15:47)
[2021-09-15] MEDS ORDERED: VANCOMYCIN HCL 1,000 MG in SODIUM CHLORIDE 0.9% 500 ML IV SCH (16:00)
[2021-09-15] MEDS ORDERED: VANCOMYCIN HCL 1,750 MG in SODIUM CHLORIDE 0.9% 500 ML IV SCH (17:15)
[2021-09-15] MEDS ORDERED: VANCOMYCIN HCL 1,750 MG in SODIUM CHLORIDE 0.9% 500 ML IV ONE (17:15)
[2021-09-15] MEDS ORDERED: LORazepam 1 MG/2 ML VIAL IV ONE (17:44)
[2021-09-15] MEDS ORDERED: cefTRIAXone SODIUM 2000MG/70ML D5W IV ONE (18:05)
--- NOTE | 2021-09-15 18:43 | Hospitalist Progress Note ---
Date of Service September 15, 2021 Assessment & Plan (1) Meningitis: Plan: 55 yo F admitted for treatment of meningitis in the setting of recent Covid-19 booster vaccination Meningitis, unknown source - LP: 88 WBC, 138 Total protein, 54 glucose. - CSF viral panel negative - CSF gram stain negative, culture pending - CT Head wo intracranial abnormality, small L posterior scalp contusion - WBC 15k, new increase from 09/11, however today is improved back to normal -Remains febrile, no tachycardia - no significant mental status changes although her reports she is mentating a bit slower than usual-continue Q4H [facility] neuro checks. - blood cultures pending - received ceftriaxone, decadron, acyclovir in ER. - Continue ceftriaxone 2g Q12, Decadron 10mg Q6 x4days. -Add on vancomycin 15 mg/kg every 12 hours - elevated HOB 30degrees for reduction of ICP -APAP for headache -Zofran prn nausea -Consult neurology-recommends MRV, MRI, and MRA of the brain DVT ppx: low risk FEN/GI: regular, NS maintenance Code Status: full code Dispo: PCU (2) Hypertension: Plan: Blood pressures are somewhat elevated likely secondary to pain Admission and Anticipated Discharge Date Admission Date: September 14, 2021 Supervising Physician Co-Signing Physician Notes I personally examined the patient and verified all [place] points of history and exam, discussed case, and agree with decision making with Dr. Mcdonnell with the following additions/exceptions: Patient reports that she was doing a little bit better today but now feels worse again in the afternoon with return of headache. She is also having some blurry vision and nausea. She feels unsteady on her feet. Denies any numbness or tingling or focal weakness. She still has significant sensitivity to light and pain in the back of her neck and the back of her head. No rashes anywhere. She thought she had a large bruise on her thigh that she saw earlier but I could not find it on examination at all. Her reports that she is slow to speak which is not typical for her, however she is quite oriented. Vitals reviewed Gen: AAOx3, NAD HEENT: Anicteric sclerae, EOMI, PERRLA, no facial droop, positive tenderness palpation over the left posterior scalp but no hematoma, oropharynx clear, unable to touch chin to chest with knees bent CV: RRR no mgr nl S1S2 Pulm: CTAB no wcr Abd: +BS soft NT ND no masses or hernias Ext: No edema, 2+ DP pulses Skin: No rashes, warm/dry Neuro: Cranial nerves II through XII intact, full strength throughout upper and lower extremities, sensation intact Laboratory values and cultures reviewed 55-year-old female here with meningitis. Seems most likely to be aseptic, but nonetheless we will add on vancomycin for broad-spectrum empiric coverage of bacterial meningitis Continue ceftriaxone and dexamethasone Follow cultures Consult neurology Given that this was in the setting of recent Covid-19 booster, question if this is some sort of either inflammatory noninfectious meningitis versus dural venous thrombosis? Check MRI brain, MRA, and MRV of the brain Care discussed with the overnight team to follow-up on MRIs after day shift over. Ativan for claustrophobia that is severe to be given prior to MRI Subjective Per nursing: Patient spiked a fever at 3:30 AM overnight. Patient is lying under the covers in darkened room. She admits to a lingering headache from her fall, which she localizes to the back of her head. She also reports extreme fatigue and photophobia. She denies ocular discomfort, blurry vision, or shortness of breath. Review of Systems Review of Systems: All systems reviewed & are unremarkable except as noted in HPI & below Physical Exam Constitutional: WD/WN, vitals as above Eyes: PERRL, conjunctivae normal, anicteric sclerae ENMT: external ear and nose normal, oropharynx normal Neck: normal visual inspection Limited neck flexion Respiratory: normal respiratory effort, lungs clear to auscultation Cardiovascular: RRR, no murmur, no edema Gastrointestinal (Abdomen): normal bowel sounds, soft, nontender, no hepatosplenomegaly Skin: no rashes, warm and dry Neurologic: PERRL, EOMI, accommodation nl, no face palsy, no dysarthria Cranial Nerves: PERRL, normal accommodation, EOM intact bilaterally, normal facial strength, tongue midline and normal hearing Results & Data Results & Data ([facility]) Vital Signs (Past 12 Hours) Vital Signs Temp Pulse Pulse Resp BP BP Pulse Ox 09/15/21 18:00 18 09/15/21 17:30 77 20 09/15/21 17:00 78 20 150/88 H 09/15/21 16:30 74 18 09/15/21 16:00 76 22 09/15/21 15:30 74 20 09/15/21 15:00 73 19 09/15/21 14:30 71 18 09/15/21 11:30 84 23 96 09/15/21 11:00 78 20 96 09/15/21 10:30 81 23 95 09/15/21 10:00 68 23 09/15/21 09:30 78 21 09/15/21 09:00 73 19 94 09/15/21 08:30 68 22 94 09/15/21 08:00 98 09/15/21 07:58 36.8 C 76 18 111/65 95 09/15/21 07:30 68 24 98 09/15/21 07:00 71 20 97 Resident Activity Tracking Resident Involvement: Resident Care Provided Care Provided: Adult Hospital Medicine
--- NOTE | 2021-09-15 20:14 | Billing Data ---
Date of Service September 15, 2021 Coding Level of Care Code 23592 Initial Inpt Care Lvl 3
[2021-09-15] MEDS: ONDANSETRON INJ 2 MG/ML 2 ML VIAL IV PRN (20:50)
--- NOTE | 2021-09-15 22:27 | Billing Data ---
Date of Service September 15, 2021 Coding Level of Care Code 58138 Subseq Hosp Care Lvl 3
[2021-09-16] MEDS ORDERED: LORazepam 2 MG/ML VIAL (IM USE) ONE (00:46)
[2021-09-16] MEDS ORDERED: GADOBUTROL 65ML VIAL IV ONE (01:37)
[2021-09-16] MEDS: SODIUM CHLORIDE 0.9% 1000ML 1,000 ML IV SCH ×3 (03:58→19:31)
[2021-09-16] MEDS ORDERED: cefTRIAXone SODIUM 2000MG/70ML D5W IV ONE (04:38)
[2021-09-16] MEDS ORDERED: DEXAMETHASONE SOD INJ 4 MG/ML VIAL ONE (04:38)
[2021-09-16] MEDS: cefTRIAXone SODIUM 2,000 MG in DEXTROSE 5% 50 ML IV SCH (04:47)
[2021-09-16] MEDS: dexAMETHasone 10 MG in SYRINGE 0 ML IV SCH ×4 (04:47→22:05)
[2021-09-16 05:53] LABS: Hematocrit (blood only) 35.5 % (37-47); Hemoglobin 12.3 g/dL (12.0-16.0); Immature Granulocytes # (auto) 0.03 K/uL (0.00-0.02); Immature Granulocytes % (auto) 0.3 %; Lymphocytes # (auto) 0.93 K/uL (1.2-3.4); Lymphocytes % (auto) 9.4 %; Mean Corpuscular Hemoglobin 28.7 pg (25-34); Mean Corpuscular Hgb Conc 34.6 g/dL (32-36); Mean Corpuscular Volume 82.8 fL (80-100); Mean Platelet Volume 10.2 fL (7.4-10.4); Monocytes # (auto) 0.72 K/uL (0.11-0.59); Monocytes % (auto) 7.3 %; Neutrophils # (auto) 8.24 K/uL (1.4-6.5); Platelet Count 231 K/uL (130-400); RDW Standard Deviation 36.2 fL (36.4-46.3); Red Blood Count 4.29 M/uL (4.2-5.4); White Blood Count 9.92 K/uL (4.8-10.8)
[2021-09-16] MEDS ORDERED: VANCOMYCIN HCL 1,250 MG in SODIUM CHLORIDE 0.9% 250 ML IV SCH (06:00)
[2021-09-16 06:24] LABS: Albumin Level 2.9 gm/dl (3.4-5.0); BUN Creatinine Ratio 20.2 (10-20); Calcium 8.4 mg/dl (8.5-10.1); Creatinine Clr Calc Pharmacy 117.2 ml/min; Est GFR (African American) 124.9 ml/min; Est GFR (Non-African American) 107.7 ml/min; Potassium 3.8 mmol/L (3.5-5.1)
[2021-09-16 06:26] LABS: Albumin Globulin Ratio 0.9 (0.9-2); Bilirubin,Total 0.4 mg/dl (0.2-1); Globulin 3.2 gm/dl (2.5-4.0); Total Protein 6.1 gm/dl (6.4-8.2)
--- NOTE | 2021-09-16 08:45 | Pharmacy Report ---
Pharmacy Vanc AUC Short Note - Date of Service September 16, 2021 - Assessment & Plan Assessment 55 year old F receiving IV Vancomycin and Ceftriaxone (not a consult) for treatment of meningitis. Day # 2 of antimicrobial therapy. * CSF, BC, and urine cultures NGTD * CSF viral panel was negative; she received acyclovir x 1 dose * Vancomycin being added on to Ceftriaxone as patient febrile yesterday * No renal impairment noted; sCr = 0.54 mg/dL with estimated CrCl >100. Estimated pharmacokinetics: * Ke ~0.087/hr, T1/2 ~7.9 hrs Plan Vancomycin * AUC/WENDI is the preferred PK/PD target for vancomycin * AUC guided dosing is effective and associated with decreased risk of nephrotoxicity compared to traditional trough targets * Patient was loaded with Vancomycin 1750mg (~26mg/kg) IV x 1 * According to [facility], Vancomycin 1250mg (~18 mg/kg) IV q12 is predicted to achieve target AUC/WENDI of 400-600 mg/L.hr and may be associated with a 10 % risk of nephrotoxicity * Trough or random level ordered for: 09/17/21 @ 0530 (early level only prior to 3rd dose and therefore not reflective of steady state, but want to assess dosing regimen early due to meningitis indication) Pharmacy will continue to follow and will adjust dose/frequency as necessary. Thank you.
--- NOTE | 2021-09-16 09:08 | Magnetic Resonance Report ---
MR angio head wo con CLINICAL HISTORY: Evaluate for intracranial venous thrombus; meningitis. Patient reports being sick for one week with headaches, chills and bodyaches. Fell 4 days ago with trauma to the head. COMPARISON: CT brain from 09/14/2021 TECHNIQUE: 3-D time of flight MR angiographic images of the brain were also obtained without IV contr ast. FINDINGS: Posterior circulation: Both vertebral arteries, the basilar artery, and both posterior cerebral arter ies are patent. However, there is a hypoplastic P1 segment of the left posterior cerebral artery. No focal stenosis is identified. This is most likely congenital in nature. The distal left posterior cir culation is supplied by the posterior communicating artery. Anterior circulation: Both internal carotid arteries are patent. The anterior cerebral and middle cer ebral arteries are patent bilaterally. However, there is also hypoplasia of the right A1 segment of t he right anterior cerebral artery. No focal stenosis is identified. This is again most likely congeni tye in nature. The distal right anterior circulation is supplied via a patent anterior communicating artery. No arterial occlusion, hemodynamically significant stenosis, aneurysm, or vascular malformation is se en. IMPRESSION: 1. 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 No focal occlusion. 2. 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 Again, no focal occlusion is identified. 3. The draining sinuses and venous structures cannot be identified by this study. ACT 112: Negative or not required by law. Electronically signed by: Steven Escamilla M.D. 09/16/2021 9:06 AM
--- NOTE | 2021-09-16 09:09 | Magnetic Resonance Report ---
MR brain wo/w con CLINICAL HISTORY: meningitis,headache,fever TECHNIQUE: Multiplanar and multisequence MR images of the brain were obtained prior to and following administration of gadolinium contrast. Comparison: None available at the time of this dictation. FINDINGS: Exam is limited by patient motion. No abnormal restricted diffusion is identified. The white matter i s unremarkable. The ventricular system is normal in appearance. There is no evidence of acute intrapa renchymal hemorrhage. No extra axial fluid collections are seen. There are no masses, mass effect, or midline shift. No abnormal enhancement is seen. The corpus callosum, pituitary gland, and cerebella r tonsils appear grossly unremarkable. Flow voids of the major intracranial arterial vessels are identified. The imaged portions of the para nasal sinuses, mastoid air cells, and orbits are unremarkable. IMPRESSION: No acute abnormalities. ACT 112: Negative or not required by law. Electronically signed by: Ezequiel Colunga M.D. 09/16/2021 9:08 AM
--- NOTE | 2021-09-16 09:12 | Magnetic Resonance Report ---
MR venography head wo con CLINICAL HISTORY: r/o intracranial venous thrombus; meningitis TECHNIQUE: Multiplanar and multisequence MR images of the brain were obtained with MR venography prot ocol Comparison: Comparison is made to CT head 09/14/2021 and MRA head 09/16/2021 FINDINGS: The white matter is unremarkable. The ventricular system is normal in appearance. There are no masses , mass effect, or midline shift. No abnormal enhancement is seen. The corpus callosum, pituitary gla nd, and cerebellar tonsils appear grossly unremarkable. Normal patency and flow is seen in the dural sinuses and visualized cerebral veins. The imaged portio ns of the paranasal sinuses, mastoid air cells, and orbits are unremarkable. IMPRESSION: No acute abnormalities, no evidence of dural venous thrombus. ACT 112: Negative or not required by law. Electronically signed by: Ezequiel Colunga M.D. 09/16/2021 9:11 AM
[2021-09-16] MEDS: ACETAMINOPHEN 325 MG TAB PO PRN (17:33)
[2021-09-16] MEDS ORDERED: PROCHLORPERAZINE 5 MG in SYRINGE 4 ML IV ONE (19:42)
[2021-09-16] MEDS ORDERED: CYCLOBENZAPRINE HCL 10 MG TAB PO STA (20:17)
[2021-09-16] MEDS ORDERED: IBUPROFEN 200 MG TAB PO STA (20:20)
--- NOTE | 2021-09-16 21:11 | Hospitalist Progress Note ---
Date of Service September 16, 2021 Assessment & Plan (1) Meningitis: Plan: 55 yo otherwise healthy woman with no past medical history, admitted for treatment of meningitis. Meningitis, unknown source - LP: 88 WBC, 138 Total protein, 54 glucose. - CSF viral panel negative - CSF gram stain negative - Blood culture: No growth for 48 hours - CSF culture negative: Stopped IV ceftriaxone, IV vancomycin - WBC 9K, afebrile - no mental status changes, can likely discontinue Q4H GCS neuro checks. - elevated HOB 30 degrees for reduction of ICP - Zofran, Compazine for nausea; heating pad for neck discomfort DVT ppx: SCDs FEN/GI: regular, NS maintenance Code Status: full code Dispo: PCU (2) Hypertension: Admission and Anticipated Discharge Date Admission Date: September 14, 2021 Supervising Physician Co-Signing Physician Notes SaravananI personally examined the patient and verified all [place] points of history and exam, discussed case, and agree with decision making with Dr. Mcdonnell with the following additions/exceptions: Patient reports some slightly less photophobia today, like is improved but now has more posterior neck pain and stiffness. Still some nausea. No further fevers today. She is sleeping all day. Vitals reviewed Gen: AAOx3, NAD HEENT: Anicteric sclerae, EOMI, PERRLA, no facial droop CV: RRR no mgr nl S1S2 Pulm: CTAB no wcr Abd: +BS soft NT ND no masses or hernias Ext: No edema, 2+ DP pulses Skin: No rashes, warm/dry Neuro: Cranial nerves II through XII intact, full strength throughout upper and lower extremities, sensation intact Laboratory values and cultures reviewed 55-year-old female here with meningitis. Seems most likely to be aseptic. CSF culture negative, rapid bio fire negative in the CSF Serum Lyme, Babesia, and Anaplasma are all negative but PCR is pending for Anaplasma and babesiosis MRI brain, MRA head, MRV head all negative Discontinue antibiotics Discontinue dexamethasone Continue Tylenol as needed for headache or fever Given that this was in the setting of recent Covid-19 booster, question if this is some sort of either inflammatory noninfectious meningitis now that dural venous thrombosis has been ruled out Consult neurology still pending -Add on Lyme PCR to the CSF if extra CSF still available in the lab Subjective Patient is asleep in bed this morning. She reports some improvement with malaise and fatigue, as well as light sensitivity. However, she does report nausea, and decreased appetite. Review of Systems Review of Systems: All systems reviewed & are unremarkable except as noted in HPI & below Physical Exam Constitutional: WD/WN, vitals as above Eyes: PERRL, conjunctivae normal, anicteric sclerae ENMT: external ear and nose normal, oropharynx normal Respiratory: normal respiratory effort, lungs clear to auscultation Cardiovascular: RRR, no murmur, no edema Gastrointestinal (Abdomen): normal bowel sounds, soft, nontender, no hepatosplenomegaly Skin: no rashes, warm and dry Neurologic: PERRL, EOMI, accommodation nl, no face palsy, no dysarthria Results & Data Results & Data ([facility]) Vital Signs (Past 12 Hours) Vital Signs Temp Pulse Resp BP Pulse Ox Pulse Ox 09/16/21 20:26 37 C 66 15 162/98 H 95 09/16/21 18:27 36.9 C 66 14 154/95 H 95 09/16/21 16:36 36.8 C 69 16 161/97 H 97 09/16/21 10:15 92 Laboratory Results 09/16/21 05:42 09/16/21 05:42 Resident Activity Tracking Resident Involvement: Resident Care Provided Care Provided: Adult [facility]
--- NOTE | 2021-09-16 22:34 | Billing Data ---
Date of Service September 16, 2021 Coding Level of Care Code 52741 Initial Inpt Care Lvl 3
[2021-09-17] MEDS: SODIUM CHLORIDE 0.9% 1000ML 1,000 ML IV SCH ×2 (02:04→10:17)
[2021-09-17] MEDS ORDERED: VANCOMYCIN TROUGH ONE (05:30)
--- NOTE | 2021-09-17 07:19 | Hospitalist Progress Note ---
Date of Service September 17, 2021 Assessment & Plan (1) Meningitis: Plan: 55 yo otherwise healthy woman with no past medical history, admitted for treatment of meningitis. Meningitis, unknown source - LP: 88 WBC, 138 Total protein, 54 glucose. - CSF viral panel negative - CSF gram stain negative - Blood culture: No growth for 48 hours - CSF culture negative: Stopped IV ceftriaxone, IV vancomycin - WBC stable at 9K, continues to be afebrile - no mental status changes, can likely discontinue Q4H GCS neuro checks. - elevated HOB 30 degrees for reduction of ICP - Zofran, Compazine for nausea; heating pad for neck discomfort - per neurology: CSF cell counts still point to viral meningitis despite perkins negativity on biofire panel. - Restarted IV ceftriaxone today 2 mg every 12 hours. Continue until Lyme PCR returns negative - Maintenance IVF stopped DVT ppx: Lovenox 40 mg daily FEN/GI: regular Code Status: full code Dispo: MedSurg (2) Insomnia: Plan: * Benadryl 25 mg p.o. nightly * As needed IV Benadryl 12.5 mg for insomnia not adequately managed on above dose. * Reassess in the morning. Admission and Anticipated Discharge Date Admission Date: September 14, 2021 Supervising Physician Co-Signing Physician Notes Resident Physician Supervision Note: I independently interviewed and examined the patient and verified the [place] history and physical, reviewed labs and image studies and agree with resident Dr. Mcdonnell findings and care plan. Subjective Patient is lying down in bed this morning. She reports mild improvements in her photophobia and nausea, which she reports only affects her at nighttime. She continues to report fatigue as well as insomnia. Review of Systems Review of Systems: All systems reviewed & are unremarkable except as noted in HPI & below Physical Exam Constitutional: WD/WN, vitals as above Eyes: PERRL, conjunctivae normal, anicteric sclerae ENMT: external ear and nose normal, oropharynx normal Neck: normal visual inspection and + neck tender Respiratory: normal respiratory effort, lungs clear to auscultation Cardiovascular: RRR, no murmur, no edema Gastrointestinal (Abdomen): normal bowel sounds, soft, nontender, no hepatosplenomegaly Skin: no rashes, warm and dry Neurologic: PERRL, EOMI, accommodation nl, no face palsy, no dysarthria Cranial Nerves: PERRL, normal accommodation, EOM intact bilaterally, normal facial strength, tongue midline and normal hearing Results & Data Results & Data ([facility]) Vital Signs (Past 12 Hours) Vital Signs Temp Pulse Pulse Resp BP Pulse Ox 09/17/21 07:15 100 H 09/17/21 06:29 36.6 C 72 15 151/92 H 97 09/17/21 03:00 36.7 C 68 18 156/88 H 96 09/16/21 22:53 36.8 C 61 17 159/90 H 93 09/16/21 20:26 37 C 66 15 162/98 H 95 Resident Activity Tracking Resident Involvement: Resident Care Provided Care Provided: Adult Hospital Medicine
[2021-09-17 08:51] LABS: Hematocrit (blood only) 37.2 % (37-47); Hemoglobin 12.6 g/dL (12.0-16.0); Immature Granulocytes # (auto) 0.02 K/uL (0.00-0.02); Immature Granulocytes % (auto) 0.2 %; Lymphocytes # (auto) 0.59 K/uL (1.2-3.4); Mean Corpuscular Hemoglobin 28.7 pg (25-34); Mean Corpuscular Hgb Conc 33.9 g/dL (32-36); Mean Corpuscular Volume 84.7 fL (80-100); Mean Platelet Volume 10.5 fL (7.4-10.4); Monocytes # (auto) 0.62 K/uL (0.11-0.59); Monocytes % (auto) 6.3 %; Neutrophils # (auto) 8.62 K/uL (1.4-6.5); Neutrophils % (auto) 87.5 %; Platelet Count 263 K/uL (130-400); RDW Coefficient of Variation 12.3 % (11.5-14.5); RDW Standard Deviation 38.5 fL (36.4-46.3); Red Blood Count 4.39 M/uL (4.2-5.4); White Blood Count 9.85 K/uL (4.8-10.8)
[2021-09-17 09:30] LABS: BUN Creatinine Ratio 26.8 (10-20); Calcium 8.4 mg/dl (8.5-10.1); Creatinine Clr Calc Pharmacy 124.3 ml/min; Est GFR (African American) 124.1 ml/min; Est GFR (Non-African American) 107.1 ml/min
[2021-09-17 09:36] LABS: Potassium 4.4 mmol/L (3.5-5.1)
[2021-09-17] MEDS ORDERED: cefTRIAXone SODIUM 2,000 MG in DEXTROSE 5% 50 ML IV ONE (11:00)
--- NOTE | 2021-09-17 15:11 | Medical Student Progress Note ---
Date of Service September 17, 2021 Assessment & Plan (1) Meningitis: Plan: Patient is a 55-year-old woman with remote history of meningitis and syncopal episodes who presented to the ED on 09/14 with a 1-week history of headache, photophobia, nausea, and vomiting. Meningitis - Unclear etiology, more likely viral meningitis vs meningitis, tick-borne due to cell counts. - CSF findings: 88 WBC, 138 total protein, 54 Glucose - Infectious workup negative thus far, including a BioFire and CSF culture. - ruled out venous or arterial thrombus with unremarkable Head/Brain MRV and Head MRA. - Brain MRI, head CT w/o contrast, and Chest X-ray were also unremarkable. 1. Continue Rocephin to cover Lyme cause of meningitis until Lyme PCR returns 2. Continue Tylenol for headache and/or fever 3. Autoimmune workup is pending Eye Fasciculations at night: - Has been leading to significant sleep loss last 2-3 nights - Start Benadryl 25 mg qHS. DVT prophylaxis: Lovenox 40 mg QD FEN/GI: regular diet Code status: Full Code Dispo: PCU downgrade to Med/Surg, with Falls Precautions Present on Admission?: Yes Admission and Anticipated Discharge Date Admission Date: September 14, 2021 Supervising Attestation Medical Student Supervision Note: I was personally present during medical student patient encounter and independently interviewed and examined the patient and verified the [place] history and physical, reviewed labs and image studies, discussed the case with Carolyne Chavarria and agree with the findings and care plan. Await lyme western blot results. continue rocephin med for sleep follow. Subjective No acute events overnight. Patient shares that for the past 2-3 nights she has experienced an inability to stop moving her legs, usually one leg at a time, leading to her only getting a few hours of sleep every night. She subsequently wakes up fatigued and tired. This afternoon (09/17) both of her eyes have been twitching whenever she looks down and towards the side. She has no other vision changes. Unfortunately, she is experiencing early satiety, a decreased appetite, and significant weakness. She is anxious to eat for fear of throwing up. She relays discomfort in the central portion of her lower abdomen. Her dry mouth has im proved with increased PO water intake. Her spatial focus of pain has changed from the middle of her forehead to her neck and shoulders, where she is also experiencing stiffness. She shared that one of her dogs is currently undergoing Lyme and Anaplasmosis treatment and that she is frequently bitten by ticks due to her work environment and getting exercise with her dogs [place]. Her was present in the afternoon (09/17) and relayed a syncopal event from 6 years ago when Misty passed out after an ablation procedure. Both patient and her felt this was similar to the syncopal event that led to her 09/10 ED visit. Her felt her episode had to do with a drop in blood pressure. He stated that he has never seen her seize or have incontinence with the syncopal episodes (both the one 6 years ago and the one from last week). Review of Systems Review of Systems: All systems reviewed & are unremarkable except as noted in HPI & below Constitutional: as per Subjective / HPI, + fatigue, + weakness, + anorexia and + daytime sleepiness Eyes: as per Subjective / HPI and + photophobia b/l eye twitching with downward and peripheral eye movement Ear, Nose, Mouth, Throat: as per Subjective / HPI, + facial pain and + dry mouth dry mouth improved with increased PO water intake, neck and shoulder stiffness and pain Respiratory: as per Subjective / HPI Cardiovascular: as per Subjective / HPI and + lightheadedness Additional Comments: lightheadedness when sits up too fast Gastrointestinal: as per Subjective / HPI abdominal discomfort in lower central abdomen (suprapubic) and inferior to umbilicus Musculoskeletal: as per Subjective / HPI, + neck pain and + stiffness neck and shoulder stiffness and pain Neurologic: as per Subjective / HPI, + unsteadiness, + generalized weakness and + dizziness inability to stop moving legs at night (one at a time); fasciculations Psychiatric: as per Subjective / HPI Endocrine: as per Subjective / HPI and + fatigue Physical Exam Constitutional: well developed and + frail appearing Eyes: PERRL, conjunctivae normal, anicteric sclerae mild swelling around b/l eyelids ENMT: external ear and nose normal, oropharynx normal Throat: uvula midline Neck: trachea midline, no thyromegaly + nuchal rigidity neck stiffness Respiratory: normal respiratory effort, lungs clear to auscultation normal respiratory effort Auscultation: lungs clear to auscultation bilaterally Cardiovascular: RRR, no murmur, no edema Heart Sounds: normal S1 and normal S2 Gastrointestinal (Abdomen): normal bowel sounds, soft, nontender, no hepatosplenomegaly lower central abdominal tenderness (from right above pubic bone to under umbilicus) Musculoskeletal: no cyanosis or clubbing, extremities motor strength 5/5 Head/Neck/Chest: + head abnormal to inspection and normocephalic Extremities: extremities normal to inspection and strength 5/5 throughout bump on back left of head; neck and shoulder pain and stiffness Skin: no rashes, warm and dry + ecchymosis Trauma: + contusion large healing bruise on right buttock bump on left back of head Neurologic: patellar DTR's 2+ bilat, sensation intact and PERRL, EOMI, accommodation nl, no face palsy, no dysarthria normal touch/pain/proprioception and CN's II-XI intact bilaterally mild dysarthria, unable to walk patient due to lightheadedness with sitting up Psychiatric: A+Ox3, euthymic affect Affect: euthymic affect Results & Data ([facility]) Vital Signs (Past 12 Hours) Vital Signs Temp Pulse Pulse Resp BP Pulse Ox 09/17/21 11:35 37.0 C 81 18 125/80 96 09/17/21 07:15 100 H 09/17/21 06:29 36.6 C 72 15 151/92 H 97 Laboratory Results Laboratory Results - last 24 hr 09/16/21 09/17/21 09/17/21 20:00 08:35 08:35 WBC 9.85 RBC 4.39 Hgb 12.6 Hct 37.2 MCV 84.7 MCH 28.7 MCHC 33.9 RDW Std Deviation 38.5 RDW Coeff of Nilo 12.3 Plt Count 263 MPV 10.5 H Immature Gran % (Auto) 0.2 Neut % (Auto) 87.5 Lymph % (Auto) 6.0 [place] % (Auto) 6.3 Eos % (Auto) 0.0 Baso % (Auto) 0.0 Neut # (Auto) 8.62 H Lymph # (Auto) 0.59 L [place] # (Auto) 0.62 H Eos # (Auto) 0.00 Baso # (Auto) 0.00 Immature Gran # (Auto) 0.02 Sodium 139 Potassium 4.4 D Chloride 106 Carbon Dioxide 28 Anion Gap 5.0 BUN 15 Creatinine 0.55 L Est Cr Clr Drug Dosing 124.3 Est GFR ( Amer) 124.1 Est GFR (Non-Af Amer) 107.1 BUN/Creatinine Ratio 26.8 H Glucose 129 H Calcium 8.4 L Fld Lyme DNA (PCR) Pending [place] Screen SS-A/Ro Antibody SS-B/La Antibody Sm (Felton) Antibody RAKE OPERATOR Antibody Scl-70 Scleroderma Ab Anti-ds DNA (Crithidia) Chromatin Antibody Anti-Centromere Ab Thyroid Antimicrosomal Anti-Cardiolipin IgG Ab Anti-Cardiolipin IgA Ab Anti-Cardiolipin IgM Ab Complement C3 Complement C4 Lyme Specimen Source Pending 09/17/21 10:24 WBC RBC Hgb Hct MCV MCH MCHC RDW Std Deviation RDW Coeff of Nilo Plt Count MPV Immature Gran % (Auto) Neut % (Auto) Lymph % (Auto) [place] % (Auto) Eos % (Auto) Baso % (Auto) Neut # (Auto) Lymph # (Auto) [place] # (Auto) Eos # (Auto) Baso # (Auto) Immature Gran # (Auto) Sodium Potassium Chloride Carbon Dioxide Anion Gap BUN Creatinine Est Cr Clr Drug Dosing Est GFR ( Amer) Est GFR (Non-Af Amer) BUN/Creatinine Ratio Glucose Calcium Fld Lyme DNA (PCR) S[place]O Screen Pending SS-A/Ro Antibody Pending SS-B/La Antibody Pending Sm (Fel[place]) Antibody Pending RAKE OPERATOR Antibody Pending Scl-70 Scleroderma Ab Pending Anti-ds DNA (Crithidia) Pending Chromatin Antibody Pending Anti-Centromere Ab Pending Thyroid Antimicrosomal Pending Anti-Cardiolipin IgG Ab Pending Anti-Cardiolipin IgA Ab Pending Anti-Cardiolipin IgM Ab Pending Complement C3 Pending Complement C4 Pending Lyme Specimen Source
[2021-09-17] MEDS: ACETAMINOPHEN 325 MG TAB PO PRN ×2 (15:55→22:56)
[2021-09-17] MEDS ORDERED: diphenhydrAMINE 50 MG/ML VIAL IV PRN (18:14)
[2021-09-17] MEDS ORDERED: CYCLOBENZAPRINE HCL 10 MG TAB PO STA (19:38)
[2021-09-17] MEDS ORDERED: IBUPROFEN 200 MG TAB PO STA (19:40)
[2021-09-17] MEDS: ONDANSETRON INJ 2 MG/ML 2 ML VIAL IV PRN (19:58)
[2021-09-17] MEDS ORDERED: diphenhydrAMINE Capsule 25 MG CAP PO SCH (21:00)
[2021-09-17] MEDS ORDERED: ESZOPICLONE 1 MG TAB PO PRN (21:43)
[2021-09-17] MEDS: cefTRIAXone SODIUM 2,000 MG in DEXTROSE 5% 50 ML IV SCH (21:45)
[2021-09-18 06:56] LABS: Eosinophils # (auto) 0.03 K/uL (0-0.5); Eosinophils % (auto) 0.3 %; Hemoglobin 11.6 g/dL (12.0-16.0); Immature Granulocytes # (auto) 0.05 K/uL (0.00-0.02); Immature Granulocytes % (auto) 0.5 %; Lymphocytes # (auto) 1.61 K/uL (1.2-3.4); Lymphocytes % (auto) 17.1 %; Mean Corpuscular Hemoglobin 28.4 pg (25-34); Mean Corpuscular Hgb Conc 33.1 g/dL (32-36); Mean Corpuscular Volume 85.8 fL (80-100); Mean Platelet Volume 10.2 fL (7.4-10.4); Monocytes # (auto) 0.63 K/uL (0.11-0.59); Monocytes % (auto) 6.7 %; Neutrophils # (auto) 7.11 K/uL (1.4-6.5); Neutrophils % (auto) 75.4 %; Platelet Count 236 K/uL (130-400); RDW Coefficient of Variation 12.5 % (11.5-14.5); RDW Standard Deviation 39.1 fL (36.4-46.3); Red Blood Count 4.08 M/uL (4.2-5.4); White Blood Count 9.43 K/uL (4.8-10.8)
[2021-09-18 07:44] LABS: BUN Creatinine Ratio 21.8 (10-20); Calcium 8.2 mg/dl (8.5-10.1); Est GFR (African American) 121.3 ml/min; Est GFR (Non-African American) 104.6 ml/min; Potassium 3.3 mmol/L (3.5-5.1)
[2021-09-18] MEDS: ENOXAPARIN INJ 40 MG/0.4 ML SYR SQ SCH (08:01)
--- NOTE | 2021-09-18 09:36 | Medical Student Progress Note ---
Date of Service September 18, 2021 Assessment & Plan (1) Meningitis: Plan: Patient is a 55-year-old woman with remote history of meningitis and syncopal episodes who presented to the ED on 09/14 with a 1-week history of headache, photophobia, nausea, and vomiting. - more likely viral meningitis. in process to rule out tick-borne. - CSF findings: 88 WBC, 138 total protein, 54 Glucose - Negative infection work up thus far, including a BioFire of CSF and CSF culture. - ruled out venous or arterial thrombus with unremarkable Head/Brain MRV and Head MRA. - Brain MRI, head CT w/o contrast, and Chest X-ray were also unremarkable. 1. Continue Rocephin to cover Lyme cause of meningitis until Lyme PCR returns 2. Continue Tylenol for headache and/or fever 3. Autoimmune workup is pending Diarrhea 3-4 episodes of watery diarrhea over the last few days. -Diarrhea is likely secondary to antibiotic usage. - Will rule out C ciff - test stool for C. diff Nausea and stomach discomfort - concern of abx related side effect - Added protonix daily - prn zofran Hypokalemia - likely secondary to loss in diarrhea - Potassium of 3.3 this AM. - replaced potassium with 40 mEq - monitor potassium, continue replacing potassium as needed Body ache and weakness - checked cpk- normal at 56. - possibly sec to acute illness in conjunction with poor sleep - addressing sleep with prn meds. - PT/OT DVT ppx: Lovenox 40 mg daily FEN/GI: regular Code Status: full code Dispo: MedSurg Present on Admission?: Yes (2) Diarrhea: Present on Admission?: No (3) Hypokalemia: Admission and Anticipated Discharge Date Admission Date: September 14, 2021 Supervising Attestation Medical Student Supervision Note: I was personally present during medical student patient encounter and independently interviewed and examined the patient and verified the [place] history and physical, reviewed labs and image studies, discussed the case with Carolyne Chavarria and agree with the findings and care plan. Awaiting lyme western blot. continue IV rocephin PT/OT Subjective No acute events overnight. Patient was still fatigued this AM. She shares that the Benadryl and Lunesta did not help with her leg cramps or sleep and she got about 5 hours of sleep last night. She could not get comfortable and tossed and turned and relays that her entire body felt "fidgety". This morning, she felt "extremely fatigued and weak" and that her pain/discomfort is continuing to move down from her neck and shoulders into her chest and she now has chest heaviness. She mentioned that she is experiencing discomfort in the left anterior part of her right ankle, though she cannot remember any trauma to the area. She is able to move it freely and can bare weight. On revisit this afternoon, patient did get more sleep and was more alert. She has gotten up approximately 7 times to use the bathroom, with 3-4 of those resulting in "liquid" bowel movements. Her stool does not smell different to her. She relays that her stomach "feels like it has rocks in it". She has epigastric heaviness/fullness. Her eye twitching sensation from yesterday (09/17) has resolved. I clarified with the patient that a few weeks ago she had an approximately 1-day history of petechiae on her left forearm. She had no other new rashes, just a bruise on her R buttock. She denies SOB, breathing issues, headache, dizziness, lightheadedness, nausea, vomiting. Review of Systems Review of Systems: All systems reviewed & are unremarkable except as noted in HPI & below Constitutional: + fatigue, + weakness and + daytime sleepiness Cardiovascular: Additional Comments: chest heaviness Gastrointestinal: + abdominal pain and + diarrhea/loose stools Musculoskeletal: + stiffness neck and shoulder stiffness Neurologic: + generalized weakness Physical Exam Constitutional: + ill appearing Eyes: PERRL, conjunctivae normal, anicteric sclerae ENMT: external ear and nose normal, oropharynx normal Neck: trachea midline, no thyromegaly normal visual inspection Respiratory: normal respiratory effort, lungs clear to auscultation Cardiovascular: RRR, no murmur, no edema Heart Sounds: normal S1 and normal S2 Gastrointestinal (Abdomen): normal bowel sounds, soft, nontender, no h epatosplenomegaly tenderness to palpation of lower left abdomen Results & Data ([facility]) Vital Signs (Past 12 Hours) Vital Signs Temp Pulse Pulse Resp BP Pulse Ox 09/18/21 07:17 36.5 C 63 19 131/66 97 09/18/21 04:04 36.9 C 67 17 126/83 94 09/18/21 00:04 37 C 61 18 129/82 95 09/18/21 00:00 65 Laboratory Results Laboratory Results - last 24 hr 09/18/21 09/18/21 09/18/21 06:30 06:30 06:30 WBC 9.43 RBC 4.08 L Hgb 11.6 L Hct 35.0 L MCV 85.8 MCH 28.4 MCHC 33.1 RDW Std Deviation 39.1 RDW Coeff of Nilo 12.5 Plt Count 236 MPV 10.2 Immature Gran % (Auto) 0.5 Neut % (Auto) 75.4 Lymph % (Auto) 17.1 [place] % (Auto) 6.7 Eos % (Auto) 0.3 Baso % (Auto) 0.0 Neut # (Auto) 7.11 H Lymph # (Auto) 1.61 [place] # (Auto) 0.63 H Eos # (Auto) 0.03 Baso # (Auto) 0.00 Immature Gran # (Auto) 0.05 H Sodium 139 Potassium 3.3 L D Chloride 106 Carbon Dioxide 28 Anion Gap 5.0 BUN 13 Creatinine 0.59 L Est Cr Clr Drug Dosing 116.0 Est GFR ( Amer) 121.3 Est GFR (Non-Af Amer) 104.6 BUN/Creatinine Ratio 21.8 H Glucose 100 H Calcium 8.2 L Total Creatine Kinase 56
[2021-09-18] MEDS: cefTRIAXone SODIUM 2,000 MG in DEXTROSE 5% 50 ML IV SCH ×3 (10:30→22:09)
[2021-09-18] MEDS: PANTOprazole 40 MG in SYRINGE 0 ML IV SCH (11:27)
[2021-09-18] MEDS ORDERED: POTASSIUM CHLORIDE CRTAB 20 MEQ TABCR PO SCH (13:41)
[2021-09-18] MEDS ORDERED: POTASSIUM CHLORIDE CRTAB 20 MEQ TABCR PO STA (13:41)
[2021-09-18] MEDS: ONDANSETRON INJ 2 MG/ML 2 ML VIAL IV PRN (16:35)
[2021-09-18] MEDS: ACETAMINOPHEN 325 MG TAB PO PRN (16:39)
[2021-09-19 07:51] LABS: Eosinophils # (auto) 0.01 K/uL (0-0.5); Eosinophils % (auto) 0.2 %; Hemoglobin 12.9 g/dL (12.0-16.0); Immature Granulocytes # (auto) 0.03 K/uL (0.00-0.02); Immature Granulocytes % (auto) 0.5 %; Lymphocytes # (auto) 0.95 K/uL (1.2-3.4); Mean Corpuscular Hemoglobin 28.5 pg (25-34); Mean Corpuscular Hgb Conc 33.9 g/dL (32-36); Mean Corpuscular Volume 84.1 fL (80-100); Monocytes # (auto) 0.52 K/uL (0.11-0.59); Monocytes % (auto) 8.7 %; Neutrophils # (auto) 4.44 K/uL (1.4-6.5); Neutrophils % (auto) 74.6 %; Platelet Count 226 K/uL (130-400); RDW Coefficient of Variation 12.2 % (11.5-14.5); RDW Standard Deviation 37.5 fL (36.4-46.3); Red Blood Count 4.52 M/uL (4.2-5.4); White Blood Count 5.95 K/uL (4.8-10.8)
[2021-09-19 08:44] LABS: BUN Creatinine Ratio 10.1 (10-20); Calcium 8.6 mg/dl (8.5-10.1); Est GFR (African American) 124.1 ml/min; Est GFR (Non-African American) 107.1 ml/min; Potassium 3.6 mmol/L (3.5-5.1)
[2021-09-19] MEDS: ACETAMINOPHEN 325 MG TAB PO PRN ×2 (10:40→19:20)
[2021-09-19] MEDS: cefTRIAXone SODIUM 2,000 MG in DEXTROSE 5% 50 ML IV SCH ×2 (10:40→23:11)
[2021-09-19] MEDS: ENOXAPARIN INJ 40 MG/0.4 ML SYR SQ SCH (10:40)
[2021-09-19] MEDS: PANTOprazole 40 MG in SYRINGE 0 ML IV SCH (12:16)
--- NOTE | 2021-09-19 12:22 | Medical Student Progress Note ---
Date of Service September 19, 2021 Assessment & Plan (1) Meningitis: Plan: Patient is a 55-year-old woman with remote history of meningitis and syncopal episodes who presented to the ED on 09/14 with a 1-week history of headache, photophobia, nausea, and vomiting. - more likely viral meningitis. in process to rule out tick-borne. - CSF findings: 88 WBC, 138 total protein, 54 Glucose - Negative infection work up thus far, including a BioFire of CSF and CSF culture. - ruled out venous or arterial thrombus with unremarkable Head/Brain MRV and Head MRA. - Brain MRI, head CT w/o contrast, and Chest X-ray were also unremarkable. 1. Continue Rocephin to cover Lyme cause of meningitis until Lyme PCR returns 2. Continue Tylenol for headache and/or fever 3. Autoimmune workup is pending Diarrhea - resolved as of 09/19 Nausea and stomach discomfort - had between 5-10 episodes of infra-umbilicus spasming overnight, likely secondary to antibiotic usage - Added protonix daily and probiotics - prn zofran Hypokalemia - likely secondary to loss in diarrhea - Potassium of 3.6 this AM (09/19) - monitor potassium, continue replacing potassium as needed Body ache and weakness - checked cpk- normal at 56. - possibly sec to acute illness in conjunction with poor sleep - addressing sleep with prn meds. - improving as of 09/19 - PT/OT DVT ppx: Lovenox 40 mg daily FEN/GI: regular� Code Status: full code Dispo: MedSurg (2) Diarrhea: Admission and Anticipated Discharge Date Admission Date: September 14, 2021 Supervising Attestation Medical Student Supervision Note: I was personally present during medical student patient encounter and independently interviewed and examined the patient and verified the [place] history and physical, reviewed labs and image studies, discussed the case with Carolyne Chavarria and agree with the findings and care plan. continue IV rocephine pending lyme western blot add probiotics for GI symptoms sec to abx PT/OT Subjective No acute events overnight. She is feeling improved this morning, having gotten several hours of sleep last night. She is less fatigued and weak and her chest heaviness has resolved. She denies headache and nausea. She has been working with PT and is able to ambulate with minor assistance to the bathroom and chair. She was able to walk up and down the [place] with a walker. She mentioned that she has not had a bowel movement since yesterday,and reports no diarrhea. She states that overnight she had between 5-10 "stomach spasms" with deep breaths. She went on to describe these as "diaphragmatic spasms", though when asked to locate the spasms she pointed to her infra-umbilicus region. Review of Systems Review of Systems: All systems reviewed & are unremarkable except as noted in HPI & below Constitutional: as per Subjective / HPI, + fatigue and + weakness fatigue, weakness improving Eyes: as per Subjective / HPI Ear, Nose, Mouth, Throat: as per Subjective / HPI Respiratory: as per Subjective / HPI Cardiovascular: as per Subjective / HPI Gastrointestinal: as per Subjective / HPI abdominal spasms overnight Neurologic: + generalized weakness improving weakness Physical Exam Constitutional: WD/WN, vitals as above well developed and well nourished Eyes: PERRL, conjunctivae normal, anicteric sclerae ENMT: external ear and nose normal, oropharynx normal Neck: trachea midline, no thyromegaly Respiratory: normal respiratory effort, lungs clear to auscultation Cardiovascular: RRR, no murmur, no edema Heart Sounds: normal S1 and normal S2 Gastrointestinal (Abdomen): normal bowel sounds, soft, nontender, no hepatosplenomegaly Neurologic: patellar DTR's 2+ bilat, sensation intact and PERRL, EOMI, accommodation nl, no face palsy, no dysarthria Psychiatric: A+Ox3, euthymic affect Results & Data ([facility]) Vital Signs (Past 12 Hours) Vital Signs Temp Pulse Resp BP Pulse Ox 09/19/21 08:19 37.1 C 68 18 142/82 H 96
[2021-09-19] MEDS: ADVANCED PROBIOTIC 1250 MG CAPSULE PO SCH (13:04)
[2021-09-19 19:05] LABS: Lyme DNA PCR CSF or Synovial Not detected (Not Detected); Lyme DNA Source CSF
[2021-09-19] MEDS: ONDANSETRON INJ 2 MG/ML 2 ML VIAL IV PRN (19:22)
[2021-09-19 20:05] LABS: Babesia microti DNA Not Detected (Not Detected)
[2021-09-20] MEDS: ACETAMINOPHEN 325 MG TAB PO PRN (05:29)
--- NOTE | 2021-09-20 09:31 | Medical Student Progress Note ---
Date of Service September 20, 2021 Assessment & Plan (1) Meningitis: Plan: Patient is a 55-year-old woman with remote history of meningitis and syncopal episodes who presented to the ED on 09/14 with a 1-week history of headache, photophobia, nausea, and vomiting. - likely viral meningitis, lyme western blot was negative - CSF findings: 88 WBC, 138 total protein, 54 Glucose - Negative infection work up thus far, including a BioFire of CSF and CSF culture. - ruled out venous or arterial thrombus with unremarkable Head/Brain MRV and Head MRA. - Brain MRI, head CT w/o contrast, and Chest X-ray were also unremarkable. 1. Discontinue Rocephin with negative Lyme tests 2. Continue Tylenol for headache and/or fever 3. Autoimmune workup is pending Diarrhea - resolved as of 09/19 Nausea and stomach discomfort - resolved as of 09/20 - no BM since 09/18, added probiotics QD - Added protonix daily - prn zofran Hypokalemia - likely secondary to loss in diarrhea - Potassium of 3.6 this AM (09/19) - monitor potassium, continue replacing potassium as needed Body ache and weakness - overnight 09/19-09/20 developed shoulder/neck/posterior arm pain that is tender to touch - checked cpk- normal at 56. - possibly sec to acute illness in conjunction with poor sleep - addressing sleep with prn meds. - PT/OT FEN: full diet DVT ppx: Lovenox 40 mg QD dispo: home (2) Headache: Headache chronicity pattern: acute headache Headache type: unspecified Intractability: intractable Qualified Code(s): R51.9 - Headache, unspecified (3) Insomnia: Admission and Anticipated Discharge Date Admission Date: September 14, 2021 Subjective No acute events overnight. Patient was resting comfortably in bed this morning. She states that did not sleep well last night (3 hours, from 2 am-5 am)and doesn't recall receiving her sleeping medication (Lunesta). Since last night, she has been having pain and tenderness in her b/l shoulders, neck, and the back of her arms. She states that it "feels like ropes are wrapped around her shoulders very tightly". She describes a constant twitching in "muscles all over her body" but this is tolerable and not new since her admission. Otherwise, she is feeling improved. Her headache is completely gone as is her abdominal pain and spasms. Her last bowel movement was two days ago but she denies constipation. She is able to get into and out of her chair as well to the bathroom unassisted. Review of Systems Review of Systems: All systems reviewed & are unremarkable except as noted in HPI & below Constitutional: as per Subjective / HPI and + body aches shoulder, neck, back of arms pain Gastrointestinal: no abdominal pain Musculoskeletal: + joint pain (shoulders, neck) and + limited range of motion (limited ROM of arms due to shoulder and neck pain) Neurologic: + generalized weakness (improving); no headache(s) Endocrine: + fatigue Physical Exam Constitutional: WD/WN, vitals as above well developed, well nourished and comfortable Eyes: PERRL, conjunctivae normal, anicteric sclerae ENMT: external ear and nose normal, oropharynx normal Neck: trachea midline, no thyromegaly + neck tender Respiratory: normal respiratory effort, lungs clear to auscultation Cardiovascular: RRR, no murmur, no edema Heart Sounds: normal S1 and normal S2 Gastrointestinal (Abdomen): normal bowel sounds, soft, nontender, no hepatosplenomegaly Inspection/Auscultation: abdomen normal to inspection Musculoskeletal: no cyanosis or clubbing, extremities motor strength 5/5 Head/Neck/Chest: normocephalic and head atraumatic Shoulder: + limited ROM (due to pain) muscle twitching diffusely in multiple muscle groups throughout body Skin: no rashes, warm and dry Neurologic: PERRL, EOMI, accommodation nl, no face palsy, no dysarthria normal touch/pain/proprioception and moves all extremities MSKM Psychiatric: A+Ox3, euthymic affect Results & Data ([facility]) Vital Signs (Past 12 Hours) Vital Signs Temp Pulse Pulse Resp BP Pulse Ox 09/20/21 07:49 37.0 C 69 12 150/97 H 98 09/19/21 22:42 36.6 C 64 16 156/95 H 98
[2021-09-20] MEDS: ADVANCED PROBIOTIC 1250 MG CAPSULE PO SCH (09:34)
[2021-09-20] MEDS: ENOXAPARIN INJ 40 MG/0.4 ML SYR SQ SCH (09:34)
[2021-09-20] MEDS: cefTRIAXone SODIUM 2,000 MG in DEXTROSE 5% 50 ML IV SCH (09:35)
[2021-09-20] MEDS: PANTOprazole 40 MG in SYRINGE 0 ML IV SCH (10:46)
--- NOTE | 2021-09-20 14:36 | Discharge Summary ---
Date of Service September 20, 2021 Admission HPI Per Admitting Provider �55 yo otherwise healthy female in ER for syncope, illness, admitted for concerns of meningitis. States that she got her COVID19 booster on 09/06, and had some mild pain with breathing the following day. By friday, was starting to feel better and thinking of going to work on Friday. Friday morning was profoundly fatigued, feeling worse, syncopized at home and didn't realize until she woke up on the floor in the kitchen and didn't remember getting there. Says her witnessed her 'slump over' on the couch, which prompted them to seek care at ER on 09/10. Seen by PCP's office ([facility]) on 09/11, outpatient CBC and tickborne illness panel negative, sent zofran for nausea and advised to increase PO fluid intake. Returned to ER today for continued symptoms and worsening headache/light sensitivity. She does have a remote hx of meningitis 17 years ago when her daughter was 1 year old. Admission Exam Per Admitting Provider const: uncomfortable appearing, wrapped up in blankets in dark room card: rrr, no mrg, pulm: CTA, no work of breathing abd: soft, nontender ext: no edema, 2+ pulses neuro: A&Ox3, moving all limbs equally, no sensory or motor loss Principal Diagnosis Viral meningitis Discharge Exam Constitutional WD/WN, vitals as above Respiratory normal respiratory effort, lungs clear to auscultation Cardiovascular RRR, no murmur, no edema Gastrointestinal (Abdomen) normal bowel sounds, soft, nontender, no hepatosplenomegaly Skin no rashes, warm and dry Discharge Data Allergies Allergy/AdvReac Type Severity Reaction Status Date / Time No Known Allergies Allergy Verified 09/14/21 16:15 Consultations 09/14/21 21:55 ED Decision to Admit Stat 09/15/21 08:19 Consult Neurology Routine Ordered Studies 09/14/21 16:19 CT head/brain wo con Stat 09/16/21 00:04 MR brain wo/w con Stat 09/16/21 00:05 MR angio head wo con Stat 09/16/21 00:16 MR venography head wo con Stat Hospital Course (1) Meningitis: Patient is a 55-year-old woman with remote history of meningitis and syncopal episodes who presented to the ED on 09/14 with a 1-week history of headache, photophobia, nausea, and vomiting admitted for viral meningitis. Aseptic Meningitis - CSF findings: 88 WBC, 138 total protein, 54 Glucose - Negative work up included a BioFire of CSF and CSF culture. - ruled out venous or arterial thrombus with unremarkable Head/Brain MRV and Head MRA. - Brain MRI, head CT w/o contrast, and Chest X-ray were also unremarkable. - Started Rocephin to cover Lyme cause of meningitis - Lyme CSF PCR returned negative. Rocephin stopped after 6 days of administration. Diarrhea/Nausea/stomach discomfort - Abx side effect - Given PPI, probiotics - resolved as of 09/19 Body ache and weakness - checked cpk- normal at 56. - DTR reflexed intact. - Evaluated by PT/OT - muscle weakness improved by day of discharge - To continue exercises at home as outlined by therapy team. (2) Diarrhea: Total Time Total Time Spent Total Time Spent (In Minutes): 60 Discharge Plan Discharge Items Patient Disposition: Home - Self-Care Reason For Visit: MENINGITIS Discharge Diagnosis: Meningitis Condition on Discharge: Fair Activity: Per Instructions section Non-emergency contact: Primary Care Provider Call non-emergency contact if: your symptoms worsen and your temperature is above 101.5 Follow-up/Referrals: Merced Oviedo DO [Primary Care Provider] - 09/26/21 12:50 pm Diet: Regular Addtl Attending Provider Instructions: You were admitted to the hospital for meningitis. You were treated with intravenous antibiotics, fluids and therapy. A discharge summary will be sent to your primary care physician to ensure continuity of care. Please bring this discharge summary with you to your next office appointment so that your provider can review it at that time. Follow-up appointments: * We have requested a follow-up appointment with your primary care physician within one week of discharge. Please call their office if you do not hear from them. * Keep all your follow-up appointments as already scheduled. If you cannot make an appointment, notify your provider. CONTACT YOUR PRIMARY CARE PROVIDER if you experience any of the following: * Fever, headache, nuchal rigidity * Fatigue, loss of appetite, or red rashes * Difficulty following your treatment plan, or difficulty taking medications CALL 911 OR GO TO THE EMERGENCY DEPARTMENT if you experience any of the following: * Sudden, severe abdominal pain or nausea/vomiting * Severe chest pain, or chest pain that radiates (moves) to your jaw or arm * Sudden, severe shortness of breath or difficulty breathing Thank you for allowing us to participate in your care. Pending Studies at Discharge: No Stand-Alone Forms: My [facility] [place], Smoking Cessation Medications and DC Order Prescriptions: Continued ibuprofen [Advil] 200 mg Tablet 400 mg PO Q6H PRN (Reason: FEVER/PAIN) RF: 0 famotidine 20 mg tablet 20 mg PO BID Qty: 20 RF: 0 ondansetron 4 mg tablet,disintegrating 4 mg PO Q6H PRN (Reason: nausea and vomiting) Qty: 14 RF: 0 Discharge Orders: Discharge Order (Routine); Ordered 09/20/21 Ordered By: Lamont Clay/Other Patient Handouts: Meningitis Admission Data Admit Date/Time: 09/14/21 22:10 Attending Provider: Crista Vela Admit Provider: Carlene Osborne Primary Care Provider: Merced Oviedo Other Providers: Eliu Wiley ; Lamont Mcdonnell Other Interventions: Discharge Summary Assessment (RN) Last Done: 09/20/21 11:46 Supervising Physician Co-Signing Physician Notes Resident Physician Supervision Note: I independently interviewed and examined the patient and verified the [place] history and physical, reviewed labs and image studies and agree with resident Dr. Mcdonnell findings and care plan. Resident Activity Tracking Resident Involvement: Resident Care Provided Care Provided: Adult [facility]
--- NOTE | 2021-09-20 15:21 | Medical Student Progress Note ---
Date of Service September 20, 2021 Assessment & Plan (1) Meningitis: Plan: Patient is a 55-year-old woman with remote history of meningitis and syncopal episodes who presented to the ED on 09/14 with a 1-week history of headache, photophobia, nausea, and vomiting. - likely viral meningitis, lyme western blot was negative - CSF findings: 88 WBC, 138 total protein, 54 Glucose - Negative infection work up thus far, including a BioFire of CSF and CSF culture. - ruled out venous or arterial thrombus with unremarkable Head/Brain MRV and Head MRA. - Brain MRI, head CT w/o contrast, and Chest X-ray were also unremarkable. 1. Discontinue Rocephin with negative Lyme tests 2. Continue Tylenol for headache and/or fever 3. Autoimmune workup is pending Diarrhea - resolved as of 09/19 Nausea and stomach discomfort - resolved as of 09/20 - no BM since 09/18, added probiotics QD - Added protonix daily - prn zofran Hypokalemia - likely secondary to loss in diarrhea - Potassium of 3.6 this AM (09/19) - monitor potassium, continue replacing potassium as needed Body ache and weakness - overnight 09/19-09/20 developed shoulder/neck/posterior arm pain that is tender to touch - checked cpk- normal at 56. - possibly sec to acute illness in conjunction with poor sleep - addressing sleep with prn meds. - improving function with PT/OT FEN: full diet DVT ppx: Lovenox 40 mg QD dispo: home (2) Headache: Headache chronicity pattern: acute headache Headache type: unspecified Intractability: intractable Qualified Code(s): R51.9 - Headache, unspecified (3) Insomnia: Admission and Anticipated Discharge Date Admission Date: September 14, 2021 Subjective No acute events overnight. Patient resting comfortably in bed this morning. She did not sleep well due to b/l shoulder, neck, and posterior arm pain. She did not receive Lunesta last night. This morning, she feels much improved, with her headache completely gone, nausea resolved, abdominal pain and spasming gone. Her last bowel movement was 2 days ago, but she denies constipation. She is able to get into and out of her chair and to the bathroom without any assistance. She shared that since the beginning of her admission, she has experienced diffuse muscle twitching but that this is not very bothersome and is tolerable. Review of Systems Review of Systems: All systems reviewed & are unremarkable except as noted in HPI & below Constitutional: + body aches (b/l shoulders, neck, posterior arms), + fatigue (improving) and + weakness (improving) Neurologic: + generalized weakness (improving) Endocrine: + fatigue (improving) Physical Exam Constitutional: WD/WN, vitals as above well developed, well nourished and comfortable Neck: + neck tender (diffusely, muscle soreness) Respiratory: normal respiratory effort, lungs clear to auscultation Cardiovascular: RRR, no murmur, no edema Heart Sounds: normal S1 and normal S2 Gastrointestinal (Abdomen): normal bowel sounds, soft, nontender, no hepatosplenomegaly Musculoskeletal: no cyanosis or clubbing, extremities motor strength 5/5 Shoulder: + limited ROM (due to shoulder soreness) Skin: no rashes, warm and dry Neurologic: PERRL, EOMI, accommodation nl, no face palsy, no dysarthria Psychiatric: A+Ox3, euthymic affect Results & Data ([facility]) Vital Signs (Past 12 Hours) Vital Signs Temp Pulse Pulse Resp BP Pulse Ox 09/20/21 11:46 37.0 C 64 69 12 150/97 H 98 09/20/21 07:49 37.0 C 69 12 150/97 H 98
[2021-09-20] MEDS ORDERED: ESZOPICLONE 1 MG TAB PO SCH (22:00)
[2021-09-25 03:31] LABS: Anti Cardiolipin Ab IgG <2.0 GPL-U/mL; Anti Cardiolipin Ab IgM <2.0 MPL-U/mL; Anti Nuclear Antibody Screen NEGATIVE (NEGATIVE); Anti-Cardiolipin Ab IgA <2.0 APL-U/mL; Anti-Centromere Ab <1.0 NEG AI (<1.0 NEG); Anti-SS-A <1.0 NEG AI (<1.0 NEG); Anti-SS-B <1.0 NEG AI (<1.0 NEG); Chromatin Antibody <1.0 NEG AI (<1.0 NEG); Complement C3 125 mg/dL (83-193); DNA ds Crithidia NEGATIVE (NEGATIVE); Microsomal Ab <1 IU/mL (<9); RNP Antibody <1.0 NEG AI (<1.0 NEG); Scleroderma Anti Scl-70 Ab <1.0 NEG AI (<1.0 NEG); Sm Antibody <1.0 NEG AI (<1.0 NEG)
== END 2021-09-20 15:42 | disposition home or self-care (01) | DRG 99 ==
LOC: ED 12:27 → EDINP 22:10 → SUATTDRO 22:10 → EDINP 09-15 00:07 → 2S 09-16 18:38 → 3E 09-18 19:49
DX: I10 Essential (primary) hypertension; G03.0 Nonpyogenic meningitis; E86.0 Dehydration; E87.6 Hypokalemia